=== PATIENT | female | born 1970 | race Caucasian/White ===

== ENCOUNTER 2021-04-20 10:54 | Emergency (ER) | payer MEDICAID ==
[~2021-04-20] VITALS: Ht 149.9 cm; Wt 11.4 kg
[2021-04-20 10:57] VITALS: BP 122/84
[2021-04-20] MEDS ORDERED: dexamethasone sod phosphate 10mg/ml inj PO STA (12:09)
[2021-04-20] MEDS ORDERED: LIDOcaine Viscous 15ml cup MM STA (12:09)
[2021-04-20] MEDS ORDERED: ketorolac trometh inj. 60 MG/2 ML VIAL IM ONE (12:10)
[2021-04-20] MEDS ORDERED: CefTRIAXone 1000mg IM Kit (w/lidocaine diluent) IM ONE (14:00)
[2021-04-20] MEDS ORDERED: LIDO20SO16 PO (14:04)
[2021-04-20] MEDS ORDERED: CEPH250T PO (14:04)
[2021-04-20] MEDS ORDERED: METH4TAB3 PO (14:04)
== END 2021-04-20 14:30 | disposition home or self-care (01) ==
LOC: ER 10:55
DX: J02.9 Acute pharyngitis, unspecified (principal); Z20.822 Contact with and (suspected) exposure to COVID-19; R59.0 Localized enlarged lymph nodes; E78.00 Pure hypercholesterolemia, unspecified; I10 Essential (primary) hypertension; E03.9 Hypothyroidism, unspecified; F17.200 Nicotine dependence, unspecified, uncomplicated; Z72.89 Other problems related to lifestyle; Z79.2 Long term (current) use of antibiotics; Z79.899 Other long term (current) drug therapy
CPT/HCPCS: 87635; 87880; 96372; 99284; C9803; J0696; J1100; J1885

== ENCOUNTER 2023-04-04 11:32 | Outpatient (CLI) | payer MEDICAID ==
[~2023-04-04 11:32] MED LIST: LIDO20SO16 PO; METH4TAB3 PO
[2023-04-04 12:57] LABS: BILIRUBIN,URINE NEGATIVE (Neg); COLOR,URINE YELLOW (Yellow); GLUCOSE, URINE NEGATIVE (Neg); KETONES,URINE NEGATIVE (Neg); LEUKOCYTE ESTERASE ,URINE NEGATIVE (Neg); NITRITES, URINE NEGATIVE (Neg); OCCULT BLOOD,URINE NEGATIVE (Neg); PH,URINE 7.5 (4.8-8.0); PROTEIN,URINE NEGATIVE (Neg); UROBILINOGEN,URINE 0.2 E.U/dL (0.2-1.0)
[2023-04-04 13:02] LABS: APTT 30 SECONDS (22-32); PROTHROMBIN TIME 9.7 SECONDS (9.0-12.0)
[2023-04-04 13:03] LABS: BASOPHILS % (AUTO) 0.3 % (0-1); EOSINOPHILS # (AUTO) 0.1 X10'3 (0-0.9); EOSINOPHILS % (AUTO) 1.8 % (0-6); HEMATOCRIT 38.7 % (35.0-45.0); HEMOGLOBIN 12.6 g/dl (12.0-16.0); LYMPHOCYTES # (AUTO) 2.3 X10'3 (1.1-4.8); LYMPHOCYTES % (AUTO) 32.1 % (21-51); MEAN CORPUSCULAR HEMOGLOBIN 29.2 PG (27.0-31.0); MEAN CORPUSCULAR HGB CONC 32.6 g/dL (33.0-36.5); MEAN CORPUSCULAR VOLUME 89.6 FL (78-98); MEAN PLATELET VOLUME 7.1 FL (7.4-10.4); MONOCYTES # (AUTO) 0.5 X10'3 (0-0.9); MONOCYTES % (AUTO) 6.8 % (2-12); NEUTROPHILS # (AUTO) 4.2 X10'3 (1.8-7.7); PLATELET COUNT 407 X10'3 (140-440); RED BLOOD COUNT 4.32 X10'6 (4.20-5.60); RED CELL DISTRIBUTION WIDTH 13.9 % (11.5-14.5); UA COLLECTION TYPE CLN CATCH MIDSTREAM; WHITE BLOOD COUNT 7.1 X10'3 (4.5-11.0)
[2023-04-04 13:04] LABS: BACTERIA,URINE FEW /HPF (Neg); CLARITY,URINE SLIGHTLY CLOUDY (Clear); RBC,URINE NONE SEEN /HPF (0-2); SQUAMOUS EPITHELIAL CELL,UR MODERATE /LPF (FEW)
[2023-04-04 13:05] LABS: ALANINE AMINOTRANSFERASE 31 U/L (12-78); ALBUMIN 2.9 G/DL (3.4-5.0); ALBUMIN/GLOBULIN RATIO 0.7 (1.1-1.5); ALKALINE PHOSPHATASE 106 IU/L (46-116); ANION GAP 7 (8-16); ASPARTATE AMINO TRANSFERASE 12 U/L (10-37); BILIRUBIN,TOTAL 0.2 MG/DL (0.1-1.0); BLOOD UREA NITROGEN 12 MG/DL (7-18); BUN/CREATININE RATIO 16.7 (10.0-20.0); CHLORIDE 102 MMOL/L (99-107); CREATININE 0.72 MG/DL (0.40-0.90); GLUCOSE 95 MG/DL (70-104); MUCUS STRANDS MODERATE /LPF (Neg); POTASSIUM 4.3 MMOL/L (3.5-5.1); SODIUM 138 MMOL/L (135-145); TOTAL CARBON DIOXIDE 28.9 MMOL/L (24-32); TOTAL PROTEIN 7.3 G/DL (6.4-8.2); eGFR 84 ML/MIN
[2023-04-04 13:28] LABS: INR 0.9 INR
== END 2023-04-04 23:59 | disposition home or self-care (01) ==
LOC: LAB 11:32
PROVIDERS: ATTEND Surgery
DX: C34.92 Malignant neoplasm of unspecified part of left bronchus or lung (principal)
CPT/HCPCS: 36415; 71046; 80053; 81001; 85025; 85610; 85730; 86900; 86901; 87088

== ENCOUNTER 2023-04-24 15:07 | Outpatient (CLI) | payer MEDICAID ==
[~2023-04-24 15:07] MED LIST changes: +ATOR10TA70 PO; +ENOX100S3 SQ; +LEVO150T8 PO; +LISI20TA28 PO; +MAGNESIUM; +MULT80TA PO; +VITAMIN B 12; +VITAMIN C; +VITAMIN D; +[UNRECOGNIZED DRUG - OTHER]; +[UNRECOGNIZED DRUG - OTHER]; +[UNRECOGNIZED DRUG - OTHER]
[2023-04-28] MEDS ORDERED: LEVO112T5 PO (13:35)
[2023-05-05] MEDS ORDERED: HYDR-3972 PO ×2 (08:57)
[2023-05-15] MEDS ORDERED: HYDR-3973 PO (10:53)
[2023-05-17] MEDS ORDERED: CARV3.12 PO (12:59)
[2023-05-17] MEDS ORDERED: SYN0.088T PO (13:02)
[2023-05-30] MEDS ORDERED: HYDR-3973 PO (20:35)
[2023-07-04] MEDS ORDERED: HYDR-3973 PO ×2 (10:00)
[2023-07-12] MEDS ORDERED: HYDR-3965 PO (11:27)
== END 2023-04-24 23:59 | disposition home or self-care (01) ==
LOC: LAB 15:07
PROVIDERS: ATTEND Internal Medicine Medical Oncology
DX: R91.8 Other nonspecific abnormal finding of lung field (principal)
CPT/HCPCS: 36415; 83891

== ENCOUNTER 2023-05-01 06:12 | Inpatient (IN) | payer MEDICAID ==
[2023-04-24 16:45] LABS: BILIRUBIN,URINE NEGATIVE (Neg); CLARITY,URINE CLEAR (Clear); COLOR,URINE YELLOW (Yellow); GLUCOSE, URINE NEGATIVE (Neg); KETONES,URINE NEGATIVE (Neg); LEUKOCYTE ESTERASE ,URINE NEGATIVE (Neg); NITRITES, URINE NEGATIVE (Neg); OCCULT BLOOD,URINE NEGATIVE (Neg); PROTEIN,URINE NEGATIVE (Neg); UROBILINOGEN,URINE 0.2 E.U/dL (0.2-1.0)
[2023-04-24 16:46] LABS: BASOPHILS % (AUTO) 0.6 % (0-1); EOSINOPHILS # (AUTO) 0.1 X10'3 (0-0.9); EOSINOPHILS % (AUTO) 1.3 % (0-6); LYMPHOCYTES # (AUTO) 2.6 X10'3 (1.1-4.8); LYMPHOCYTES % (AUTO) 31.7 % (21-51); MEAN CORPUSCULAR HEMOGLOBIN 29.2 PG (27.0-31.0); MEAN CORPUSCULAR VOLUME 88.3 FL (78-98); MEAN PLATELET VOLUME 7.4 FL (7.4-10.4); MONOCYTES # (AUTO) 0.5 X10'3 (0-0.9); MONOCYTES % (AUTO) 6.6 % (2-12); NEUTROPHILS # (AUTO) 4.9 X10'3 (1.8-7.7); NEUTROPHILS % (AUTO) 59.8 % (42-75); PRE OP HEMATOCRIT 39.3 % (35.0-45.0); PRE OP PLATELET COUNT 483 X10'3 (140-440); PRE OP WHITE BLOOD COUNT 8.1 10'3 (4.8-10.8); RED BLOOD COUNT 4.45 X10'6 (4.20-5.60); RED CELL DISTRIBUTION WIDTH 13.7 % (11.5-14.5)
[2023-04-24 16:49] LABS: UA COLLECTION TYPE CLN CATCH MIDSTREAM
[2023-04-24 16:52] LABS: URINE HCG NEGATIVE (NEG)
[2023-04-24 16:57] LABS: PRE OP PROTIME 10.3 SECONDS (9.0-12.0)
[2023-04-24 17:02] LABS: HEMOGLOBIN A1C 6.2 % (4.5-6.2)
[2023-04-24 17:11] LABS: ALBUMIN/GLOBULIN RATIO 0.6 (1.1-1.5); ALKALINE PHOSPHATASE 109 IU/L (46-116); BLOOD UREA NITROGEN 14 MG/DL (7-18); BUN/CREATININE RATIO 20.3 (10.0-20.0); CALCIUM 9.8 MG/DL (8.5-10.1); CHLORIDE 99 MMOL/L (99-107); CREATININE 0.69 MG/DL (0.40-0.90); PRE OP ALT 38 U/L (30-65); PRE OP ANION GAP 10 (8-16); PRE OP AST 14 U/L (10-37); PRE OP BILIRUB, TOTAL 0.3 MG/DL (0.0-1.0); PRE OP GLUCOSE 96 MG/DL (70-104); PRE OP POTASSIUM 3.9 MMOL/L (3.4-5.1); PRE OP SODIUM 137 MMOL/L (135-145); TOTAL CARBON DIOXIDE 28.1 MMOL/L (24-32); TOTAL PROTEIN 7.7 G/DL (6.4-8.2); eGFR 89 ML/MIN
[2023-04-25 05:56] LABS: ABG BASE EXCESS -0.4 mmol/L (-2.0-2.0); ABG HCO3 23.7 mmol/L (22.0-26.0); ABG OXYGEN SATURATION 97.3 % (94-97); ABG PCO2 (T) 36.8 mmHg (32.0-45.0); ABG PH (T) 7.426 (7.350-7.450); ALLEN'S TEST POSITIVE; FCOHb 0.3 % (0.0-3.9); FHHb 2.7 % (0.0-5.0); FMetHb 0.2 % (0.0-1.5); FO2Hb 96.8 % (94-97); MODE ROOM AIR; TOTAL HEMOGLOBIN 13.3 G/dl (12.0-16.0)
[2023-05-01] VITALS (25 sets, daily range): BP systolic 101–155; BP diastolic 50–86; PULSE 72–110; RESP 12–27; TEMP 97.4; O2SAT 65–100
[~2023-05-01] VITALS: Ht 149.9 cm; Wt 63.1 kg
[2023-05-01] MEDS: metoprolol tartrate 12.5mg (1/2 tablet) PO ONE ×2 (05:30→07:24)
[~2023-05-01 06:12] MED LIST changes: +LEVO112T5 PO; -LEVO150T8 PO; -LIDO20SO16 PO; -METH4TAB3 PO; +cefazolin 2gm/D5W 100mL 100 ML IV ONE; +clindamycin-Cleocin 900mg/D5W 50 ML IV ONE; +famotidine 20mg tablet PO ONE; +mupirocin 2% nasal ointment 1gm UD NS ONE; +ringers solution, lacted 1,000 ML IV SCH
[2023-05-01] MEDS ORDERED: MIDAZolam 1 MG/ML 5ML VIAL ONE (07:47)
[2023-05-01] MEDS ORDERED: fentaNYL /PF 50mcg/ml 5ml ampule ONE ×2 (07:47→11:18)
[2023-05-01] MEDS ORDERED: LIDOcaine 2% (20mg/ml) 5ml vial ONE (07:48)
[2023-05-01] MEDS ORDERED: rocuronium 10mg/ml inj IV ONE ×2 (07:48)
[2023-05-01] MEDS ORDERED: propofol inj 20 ML IV ONE (07:48)
[2023-05-01] MEDS ORDERED: dexamethasone sod phosphate 4mg/ml inj. ONE (07:48)
[2023-05-01] MEDS ORDERED: ondansetron/PF 4mg/2ml inj ONE (07:48)
[2023-05-01] MEDS ORDERED: hydrALAZINE 20mg/ml inj. IV PRN (07:55)
[2023-05-01] MEDS ORDERED: ringers solution, lacted 1,000 ML IV SCH (07:55)
[2023-05-01] MEDS ORDERED: morphine 2 MG/ML inj. syringe IV PRN (07:55)
[2023-05-01] MEDS ORDERED: ondansetron/PF 4mg/2ml inj IV PRN ×2 (07:55→13:20)
[2023-05-01] MEDS ORDERED: fentaNYL/PF 50MCG/1 ML 2ML syringe IV PRN ×2 (07:55)
[2023-05-01] MEDS ORDERED: labetalol 20mg/4ml (5mg/ml) syringe IV PRN (07:55)
[2023-05-01] MEDS ORDERED: sevoflurane 250ml liquid IH ONE (08:05)
[2023-05-01] MEDS ORDERED: NORepinephrine 8 MG in NS 250 ML BAG (32 mcg/ml) IV ONE (08:05)
[2023-05-01] MEDS ORDERED: LIDOcaine 4% LTA kit 4ml solution TP ONE (08:25)
[2023-05-01] MEDS ORDERED: BUPIVAcaine/PF 2.5 mg/ml (0.25%) 30ml vial ONE ×2 (09:25→09:52)
[2023-05-01] MEDS ORDERED: albumin (Human) 5% 250ml 250 ML IV ONE ×3 (10:05→11:18)
[2023-05-01] MEDS ORDERED: sugammadex 200mg/2ml injection IV ONE (12:03)
[2023-05-01] MEDS ORDERED: BUPIVAcaine/PF 2.5mg/ml (0.25%) 10ml vial ONE (12:40)
[2023-05-01] MEDS ORDERED: fentaNYL/PF 50MCG/1 ML 2ML syringe ONE (12:53)
--- NOTE | 2023-05-01 13:18 | NUR ---
Received from OR via BED IN STABLE CONDITION , accompanied by Anesthesiologist, and HOUSEHOLD CHORES report given by HOUSEHOLD CHORES AND Anesthesiolgist. Addendum: 05/01/23 at 1419 by Rosanne Mabry RN Amended: Links added.
[2023-05-01] MEDS ORDERED: albuterol 2.5 MG/3 ML nebule NEB PRN (13:20)
[2023-05-01] MEDS ORDERED: metoclopramide 5 mg/ml inj IV PRN (13:20)
[2023-05-01 13:41] LABS: ABG BASE EXCESS -4.3 mmol/L (-2.0-2.0); ABG HCO3 21.4 mmol/L (22.0-26.0); ABG OXYGEN SATURATION 99.3 % (94-97); ABG PCO2 (T) 40.7 mmHg (32.0-45.0); ABG PH (T) 7.335 (7.350-7.450); ABG PO2 (T) 229.1 mmHg (75.0-100.0); FCOHb 0.3 % (0.0-3.9); FHHb 0.7 % (0.0-5.0); FLOW 8 L/min; FMetHb 0.3 % (0.0-1.5); FO2Hb 98.7 % (94-97); MODE MASK - SIMPLE; PATIENT TEMPERATURE 36.3
[2023-05-01] MEDS: ketorolac tromethamine 15mg/ml inj. IV SCH ×2 (14:35→20:19)
[2023-05-01] MEDS: morphine 4 MG/ML inj SYRINge IV PRN ×2 (14:35→14:52)
[2023-05-01] MEDS ORDERED: acetaminophen 1,000mg/100ml IV 100 ML IV STA (14:41)
--- NOTE | 2023-05-01 15:18 | NUR ---
PATIENT DISCHARGED FROM PACU IN STABLE CONDITION AFTER REPORT GIVEN TO RN TAKING OVER PATIENTS CARE. PATIENT TRANSFERRED TO ROOM 2045 VIA BED WITH RNX2. Addendum: 05/01/23 at 1543 by Rosanne Mabry RN Amended: Links added.
--- NOTE | 2023-05-01 15:57 | NUR ---
Patient in room ICU 2045. I have received report from Bri RN and had the opportunity to ask questions and assume patient care. Patient assessment, lines and drips addressed bedside.
[2023-05-01] MEDS ORDERED: ROPIVACAINE MEDSTERN SCH ×2 (16:35)
--- NOTE | 2023-05-01 16:38 | NUR ---
Dr. Velazquez by to round on patient, would like provivacaine balls hooked up as soon as pharmacy brings them, stated patient has a history of HTN and to call for orders if her SBP is greater than 160, Stated that it is likely that she i will go into AFib with the pheumonectomy if she does call for orders, would like for PT to see her tomorrow
[2023-05-01] MEDS: ROPIVAcaine 0.2%/PF PUMP 545 ML MEDSTERN SCH (16:42)
[2023-05-01] MEDS ORDERED: ROPIVAcaine 0.2%/PF PUMP 545 ML MEDSTERN SCH (16:43)
[2023-05-01] MEDS: ceFAZolin inj. 1,000 MG in dextrose 5%-water 50ml 50 ML IV SCH (16:56)
[2023-05-01] MEDS: morphine 2 MG/ML inj. syringe IV PRN (17:49)
[2023-05-01] MEDS: gabapentin 300mg capsule PO SCH (20:19)
[2023-05-01] MEDS ORDERED: lisinopril 10 MG tablet PO SCH (21:00)
[2023-05-02] VITALS (27 sets, daily range): BP systolic 81–135; BP diastolic 48–81; PULSE 83–111; RESP 13–34; TEMP 100.4–101.2; O2SAT 93–100
[2023-05-02] MEDS: ceFAZolin inj. 1,000 MG in dextrose 5%-water 50ml 50 ML IV SCH ×2
[2023-05-02] MEDS: morphine 2 MG/ML inj. syringe IV PRN ×3 (00:31→23:25)
[2023-05-02 02:45] LABS: BASOPHILS % (AUTO) 0.3 % (0-1); EOSINOPHILS % (AUTO) 0 % (0-6); HEMATOCRIT 27.4 % (35.0-45.0); HEMOGLOBIN 9.1 g/dl (12.0-16.0); LYMPHOCYTES # (AUTO) 1.1 X10'3 (1.1-4.8); LYMPHOCYTES % (AUTO) 11.6 % (21-51); MEAN CORPUSCULAR HEMOGLOBIN 29.1 PG (27.0-31.0); MEAN CORPUSCULAR HGB CONC 33.1 g/dL (33.0-36.5); MEAN PLATELET VOLUME 6.9 FL (7.4-10.4); MONOCYTES # (AUTO) 0.9 X10'3 (0-0.9); MONOCYTES % (AUTO) 9.5 % (2-12); NEUTROPHILS # (AUTO) 7.3 X10'3 (1.8-7.7); NEUTROPHILS % (AUTO) 78.6 % (42-75); PLATELET COUNT 367 X10'3 (140-440); RED BLOOD COUNT 3.11 X10'6 (4.20-5.60); RED CELL DISTRIBUTION WIDTH 13.7 % (11.5-14.5); WHITE BLOOD COUNT 9.2 X10'3 (4.5-11.0)
[2023-05-02 02:59] LABS: ALANINE AMINOTRANSFERASE 32 U/L (12-78); ALBUMIN 2.8 G/DL (3.4-5.0); ALBUMIN/GLOBULIN RATIO 0.8 (1.1-1.5); ALKALINE PHOSPHATASE 60 IU/L (46-116); ANION GAP 8 (8-16); ASPARTATE AMINO TRANSFERASE 20 U/L (10-37); BILIRUBIN,TOTAL 0.5 MG/DL (0.1-1.0); BLOOD UREA NITROGEN 14 MG/DL (7-18); BUN/CREATININE RATIO 20.9 (10.0-20.0); CALCIUM 8.4 MG/DL (8.5-10.1); CHLORIDE 104 MMOL/L (99-107); CREATININE 0.67 MG/DL (0.40-0.90); GLUCOSE 145 MG/DL (70-104); MAGNESIUM 1.6 MG/DL (1.5-2.4); PHOSPHORUS 4.2 MG/DL (2.3-4.5); POTASSIUM 4.2 MMOL/L (3.5-5.1); SODIUM 137 MMOL/L (135-145); TOTAL CARBON DIOXIDE 25.5 MMOL/L (24-32); TOTAL PROTEIN 6.1 G/DL (6.4-8.2); eCRCL 65 ML/MIN; eGFR > 90 ML/MIN
[2023-05-02] MEDS: ketorolac tromethamine 15mg/ml inj. IV SCH ×2 (05:15→07:46)
[2023-05-02] MEDS: gabapentin 300mg capsule PO SCH ×2 (07:46→20:11)
[2023-05-02] MEDS ORDERED: levoTHYROXINE 112mcg tablet PO SCH (08:00)
[2023-05-02] MEDS ORDERED: lisinopril 5mg tablet PO SCH (08:15)
[2023-05-02] MEDS ORDERED: magnesium 2GM in 50ml NS 50 ML IV ONE (08:25)
[2023-05-02] MEDS ORDERED: metoclopramide 5 mg/ml inj IV ONE (09:10)
[2023-05-02] MEDS: enoxaparin 30mg/0.3ml syringe SUBCUT SCH (09:31)
[2023-05-02] MEDS: HYDROcodone/acetaminophen 10/325mg tab PO PRN ×3 (11:59→21:10)
[2023-05-02] MEDS: ringers solution, lacted 1,000 ML IV SCH ×2 (12:35→14:04)
--- NOTE | 2023-05-02 12:39 | NUR ---
Nutrition consult: Pt is s/p thoracotomy and left pneumonectomy per EMR. Pt is currently on clear liquid diet. Noted pt seen by WATER SOFTENER SERVICER this morning whom recommends a regular diet due to swallowing well and no aspiration noted. RN to discuss recommendations with surgeon for diet advancement per T/C discussion with RN. RD attempted to provide high protein education however pt busy with RN during visit. Will reattempt to provide education at a later time. Addendum: 05/02/23 at [address] Amended: Links added.
[2023-05-02] MEDS ORDERED: acetaminophen 325mg tablet PO PRN (13:50)
[2023-05-02] MEDS ORDERED: PHENYLephrine 10mg/ml inj. 100 MG in normal saline 250ml IV soln 240 ML IV SCH (15:25)
[2023-05-02 16:16] LABS: HEMATOCRIT 26.8 % (35.0-45.0); HEMOGLOBIN 8.8 g/dl (12.0-16.0); MEAN CORPUSCULAR HEMOGLOBIN 29.2 PG (27.0-31.0); MEAN CORPUSCULAR VOLUME 88.4 FL (78-98); PLATELET COUNT 399 X10'3 (140-440); RED BLOOD COUNT 3.03 X10'6 (4.20-5.60); WHITE BLOOD COUNT 9.7 X10'3 (4.5-11.0)
--- NOTE | 2023-05-02 16:19 | NUR ---
Patient in room ICU 2045. I have received report from Perico THRASHER and had the opportunity to ask questions and assume patient care.
--- NOTE | 2023-05-02 16:20 | NUR ---
Dr Velazquez notified of patients Tmax of 38.5 and hypotension of 68/34 new orders Hold lisinopril start neosynephrine to systolic blood pressure of 90 Draw blood cultures x2, one to be drawn from the central line H/H stat transfuse 1 unit if hct less than 25 send for urine culture
[2023-05-02] MEDS: CefTRIAXone/D5W-Rocephin 1gm 50 ML IV SCH (16:23)
--- NOTE | 2023-05-02 18:04 | NUR ---
Patients got patient up to side of bed without calling for help or asking for permission or assistance, per Dr. Velazquez wants patient on bed rest until the hypotension is resolved. In the process of patients getting her to the side of the bed the white cap provivacane catheter was pulled out. Dr. Velazquez made aware
[2023-05-02] MEDS ORDERED: furosemide 20 MG/2 ML vial IV PRN (18:10)
--- NOTE | 2023-05-02 18:30 | NUR ---
Patient in room ICU 2045. I have received report from Karishma THRASHER and had the opportunity to ask questions and assume patient care.
[2023-05-02 23:41] LABS: BILIRUBIN,URINE NEGATIVE (Neg); COLOR,URINE YELLOW (Yellow); GLUCOSE, URINE NEGATIVE (Neg); KETONES,URINE NEGATIVE (Neg); LEUKOCYTE ESTERASE ,URINE NEGATIVE (Neg); NITRITES, URINE NEGATIVE (Neg); OCCULT BLOOD,URINE SMALL (Neg); PROTEIN,URINE NEGATIVE (Neg); UROBILINOGEN,URINE 0.2 E.U/dL (0.2-1.0)
[2023-05-02 23:52] LABS: UA COLLECTION TYPE FOLEY CATH
[2023-05-02 23:53] LABS: CLARITY,URINE SLIGHTLY CLOUDY (Clear)
[2023-05-02 23:54] LABS: BACTERIA,URINE FEW /HPF (Neg); MUCUS STRANDS FEW /LPF (Neg); SQUAMOUS EPITHELIAL CELL,UR FEW /LPF (FEW); TRANSITIONAL EPI CELLS,URINE FEW /HPF; WBC,URINE 0-4 /HPF (0-4)
[2023-05-03] VITALS (26 sets, daily range): BP systolic 89–131; BP diastolic 50–86; PULSE 87–120; RESP 16–26; O2SAT 90–98
[2023-05-03] MEDS: HYDROcodone/acetaminophen 10/325mg tab PO PRN ×5 (02:12→21:46)
[2023-05-03] MEDS: morphine 2 MG/ML inj. syringe IV PRN ×2 (03:52→03:58)
[2023-05-03 06:21] LABS: BASOPHILS % (AUTO) 0.3 % (0-1); EOSINOPHILS # (AUTO) 0.1 X10'3 (0-0.9); EOSINOPHILS % (AUTO) 0.6 % (0-6); HEMOGLOBIN 10.2 g/dl (12.0-16.0); LYMPHOCYTES # (AUTO) 1.7 X10'3 (1.1-4.8); LYMPHOCYTES % (AUTO) 14.2 % (21-51); MEAN CORPUSCULAR HEMOGLOBIN 29.5 PG (27.0-31.0); MEAN CORPUSCULAR HGB CONC 32.9 g/dL (33.0-36.5); MEAN CORPUSCULAR VOLUME 89.5 FL (78-98); MEAN PLATELET VOLUME 7.2 FL (7.4-10.4); MONOCYTES # (AUTO) 1.3 X10'3 (0-0.9); MONOCYTES % (AUTO) 10.9 % (2-12); NEUTROPHILS # (AUTO) 8.9 X10'3 (1.8-7.7); PLATELET COUNT 407 X10'3 (140-440); RED BLOOD COUNT 3.46 X10'6 (4.20-5.60); RED CELL DISTRIBUTION WIDTH 13.9 % (11.5-14.5); WHITE BLOOD COUNT 12.1 X10'3 (4.5-11.0)
--- NOTE | 2023-05-03 06:29 | NUR ---
Problems reprioritized. Patient report given, questions answered & plan of care reviewed with Karishma THRASHER.
[2023-05-03 06:39] LABS: ALBUMIN 2.6 G/DL (3.4-5.0); ANION GAP 6 (8-16); BLOOD UREA NITROGEN 16 MG/DL (7-18); BUN/CREATININE RATIO 21.9 (10.0-20.0); CALCIUM 8.7 MG/DL (8.5-10.1); CHLORIDE 102 MMOL/L (99-107); CREATININE 0.73 MG/DL (0.40-0.90); GLUCOSE 147 MG/DL (70-104); POTASSIUM 4.3 MMOL/L (3.5-5.1); SODIUM 137 MMOL/L (135-145); TOTAL CARBON DIOXIDE 29.4 MMOL/L (24-32); eCRCL 60 ML/MIN; eGFR 83 ML/MIN
--- NOTE | 2023-05-03 06:51 | NUR ---
Patient in room ICU 2045. I have received report from Kierra THRASHER and had the opportunity to ask questions and assume patient care.
[2023-05-03] MEDS: levoTHYROXINE 112mcg tablet PO SCH (07:46)
[2023-05-03] MEDS: enoxaparin 30mg/0.3ml syringe SUBCUT SCH (08:00)
[2023-05-03] MEDS: lactose-reduced food (Ensure Enlive) - 237ml bottle PO SCH ×2 (08:00→18:00)
[2023-05-03] MEDS: CefTRIAXone/D5W-Rocephin 1gm 50 ML IV SCH ×2 (08:59→19:38)
[2023-05-03] MEDS: gabapentin 300mg capsule PO SCH (08:59)
[2023-05-03] MEDS ORDERED: lactulose 20gm/30ml cup PO ONE (09:05)
--- NOTE | 2023-05-03 09:08 | NUR ---
Dr. Velazquez by to round on patient, labs, systems, and assessment reviewed new orders increase provivicane ball to 4mls/hr 30mg lactulose BID/PRN constipation lactobacillus daily multivitamin daily zinc daily
[2023-05-03] MEDS: multivitamins, therapeutics tablet PO SCH (10:45)
[2023-05-03] MEDS: pantoprazole 40mg Tablet.DR PO SCH (10:45)
[2023-05-03] MEDS: morphine 4 MG/ML inj SYRINge IV PRN ×3 (10:45→19:35)
[2023-05-03 10:47] LABS: THYROID STIMULATING HORMONE 0.07 ulU/ml (0.34-4.50)
--- NOTE | 2023-05-03 11:19 | NUR ---
F/u for nutrition consult: Pt seen at bedside provided with written and verbal high protein nutrition therapy education. Noted pt on a regular diet though requesting clear liquids d/t GI symptoms per ST note and verbal d/w RN. During RD visit pt endorses a good appetite though states she is having gas which is why she doesn't want to eat much. RD encouraged PO intake and obtained food preferences that were d/w dietary, see below. Pt inquired about SO bringing food in, RD encouraged outside food to optimize PO intake though requested pt inform RN prior to receiving outside food from SO. Pt verbalized understanding. Pt agrees to Ensure to optimize PO intake, to be sent pending physician approval in EMR. Pt denies any food allergies. No documented BM since admit. 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 Routine bowel care added to med list today and pt receiving PRN Reglan. Pt provided with ONS coupons and RD contact information and encouraged to reach out if needed. Information obtained from pt was d/w bedside RN. Will continue to follow closely. Recommendations: 1) Continue regular diet 2) Chocolate/vanilla Ensure Enlive TID, pending physician approval in EMR 3) [place] food preferences: Smoothie WB, [place] [employer] Ice WL, milkshake WS; allow outside food to optimize PO intake 4) Routine and PRN bowel care 5) Weekly scaled weights Addendum: 05/03/23 at [address] Amended: Links added.
[2023-05-03] MEDS ORDERED: NUT.TX.IMPAIRED DIGEST FXN (Ensure Clear) 237 ML PO SCH (13:00)
--- NOTE | 2023-05-03 14:39 | NUR ---
Dr. Chaparro by to round on patient, systems, labs and assessment reviewed new orders D/C central line NS at 80 mls/hr Clear liquid diet transfer any floor with tele Addendum: 05/03/23 at 1444 by Debbie Garza RN note on wrong patient
[2023-05-03] MEDS: ROPIVAcaine 0.2%/PF PUMP 545 ML MEDSTERN SCH (16:42)
--- NOTE | 2023-05-03 18:30 | NUR ---
Patient in room ICU 2045. I have received report from Karishma THRASHER and had the opportunity to ask questions and assume patient care.
[2023-05-03] MEDS: sennosides/docusate sodium tablet PO SCH (19:37)
[2023-05-03] MEDS: docusate sod 100mg capsule PO SCH (19:37)
[2023-05-03] MEDS: zinc sulfate 220mg capsule PO SCH (19:37)
[2023-05-03] MEDS ORDERED: zinc sulfate 220mg capsule PO SCH (20:00)
[2023-05-04] VITALS (27 sets, daily range): BP systolic 96–136; BP diastolic 60–85; PULSE 85–110; RESP 11–27; O2SAT 92–100
[2023-05-04] MEDS: HYDROcodone/acetaminophen 10/325mg tab PO PRN ×5 (02:36→21:18)
[2023-05-04] MEDS: morphine 4 MG/ML inj SYRINge IV PRN ×2 (05:22→19:25)
[2023-05-04 06:09] LABS: ALBUMIN 2.3 G/DL (3.4-5.0); ANION GAP 4 (8-16); BLOOD UREA NITROGEN 17 MG/DL (7-18); BUN/CREATININE RATIO 26.2 (10.0-20.0); CHLORIDE 100 MMOL/L (99-107); CREATININE 0.65 MG/DL (0.40-0.90); GLUCOSE 152 MG/DL (70-104); POTASSIUM 4.2 MMOL/L (3.5-5.1); SODIUM 134 MMOL/L (135-145); TOTAL CARBON DIOXIDE 30.5 MMOL/L (24-32); eCRCL 67 ML/MIN; eGFR > 90 ML/MIN
--- NOTE | 2023-05-04 06:20 | NUR ---
Problems reprioritized. Patient report given, questions answered & plan of care reviewed with Karishma THRASHER.
--- NOTE | 2023-05-04 07:11 | NUR ---
Patient in room ICU 2045. I have received report from PRICE Lozada and had the opportunity to ask questions and assume patient care.
--- NOTE | 2023-05-04 07:11 | NUR ---
Dr Velazquez in to see patient. New orders to transfer patient upstairs with tele and continuous sat monitoring. labs for am, hold antihypertensives, keep on O2, up to chair for meals, leave central line in for 1 more day.
[2023-05-04] MEDS: levoTHYROXINE 112mcg tablet PO SCH (07:25)
[2023-05-04] MEDS: pantoprazole 40mg Tablet.DR PO SCH (07:25)
[2023-05-04] MEDS: lactulose 20gm/30ml cup PO PRN (08:19)
[2023-05-04] MEDS: sennosides/docusate sodium tablet PO SCH ×2 (08:19→19:24)
[2023-05-04] MEDS: lactobacillus rhamnosus 10,000 MMU CELLS/CAPSULE PO SCH (08:19)
[2023-05-04] MEDS: CefTRIAXone/D5W-Rocephin 1gm 50 ML IV SCH ×2 (08:19→19:24)
[2023-05-04] MEDS: multivitamins, therapeutics tablet PO SCH (08:19)
[2023-05-04] MEDS: docusate sod 100mg capsule PO SCH ×2 (08:19→19:24)
[2023-05-04] MEDS: enoxaparin 30mg/0.3ml syringe SUBCUT SCH (08:20)
[2023-05-04] MEDS ORDERED: potassium Cl 40MEQ/1/2NS 520ml 520 ML IV PRN (09:00)
[2023-05-04] MEDS ORDERED: potassium CL 10mEq/100ml bag 100 ML IV PRN (09:00)
[2023-05-04] MEDS ORDERED: potassium Cl 20 mEq SR tablet PO PRN ×2 (09:00)
[2023-05-04] MEDS ORDERED: potassium Cl 40MEQ/270ML bag 250 ML IV PRN (09:00)
[2023-05-04] MEDS ORDERED: magnesium 4gm in 100ml NS 100 ML IV PRN (09:00)
[2023-05-04] MEDS ORDERED: potassium Cl 20mEq/100mL bag 100 ML IV PRN (09:00)
[2023-05-04] MEDS ORDERED: magnesium 2GM in 50ml NS 50 ML IV PRN (09:00)
--- NOTE | 2023-05-04 10:41 | NUR ---
Nutrition consult: Pt already seen at bedside for written and verbal nutrition therapy education, please see prior RD note. Addendum: 05/04/23 at [address] Amended: Links added.
[2023-05-04] MEDS: zinc sulfate 220mg capsule PO SCH (12:02)
[2023-05-04] MEDS: lactose-reduced food (Ensure Enlive) - 237ml bottle PO SCH ×2 (13:10→18:00)
--- NOTE | 2023-05-04 14:04 | NUR ---
Pain complaint Pt complained of pain. Repositioned x 2 RN's, extremities elevated on pillows to comfort. Pt c/o gastric gas pain at this point. MAR indicates next pain med due at 1600. Discussed with pt and she is Okay for now. Family at bedside w/pt.
--- NOTE | 2023-05-04 18:30 | NUR ---
Patient in room ICU 2045. I have received report from Karishma THRASHER and had the opportunity to ask questions and assume patient care.
[2023-05-04] MEDS: magnesium Cl slow-release 64mg tablet PO SCH (19:24)
[2023-05-05] VITALS (25 sets, daily range): BP systolic 98–152; BP diastolic 52–90; PULSE 83–118; RESP 11–24; O2SAT 90–98
[2023-05-05] MEDS: morphine 4 MG/ML inj SYRINge IV PRN ×3 (00:32→14:04)
[2023-05-05] MEDS: HYDROcodone/acetaminophen 10/325mg tab PO PRN ×4 (04:04→21:38)
--- NOTE | 2023-05-05 06:21 | NUR ---
Problems reprioritized. Patient report given, questions answered & plan of care reviewed with Cassandra THRASHER.
[2023-05-05] MEDS: pantoprazole 40mg Tablet.DR PO SCH (06:41)
[2023-05-05] MEDS: levoTHYROXINE 112mcg tablet PO SCH (06:42)
[2023-05-05 06:43] LABS: BASOPHILS % (AUTO) 0.2 % (0-1); EOSINOPHILS # (AUTO) 0.3 X10'3 (0-0.9); EOSINOPHILS % (AUTO) 2.6 % (0-6); HEMOGLOBIN 9.1 g/dl (12.0-16.0); LYMPHOCYTES # (AUTO) 1.1 X10'3 (1.1-4.8); LYMPHOCYTES % (AUTO) 10.3 % (21-51); MEAN CORPUSCULAR HEMOGLOBIN 29.9 PG (27.0-31.0); MEAN CORPUSCULAR HGB CONC 33.8 g/dL (33.0-36.5); MEAN CORPUSCULAR VOLUME 88.4 FL (78-98); MONOCYTES % (AUTO) 9.2 % (2-12); NEUTROPHILS # (AUTO) 8.1 X10'3 (1.8-7.7); NEUTROPHILS % (AUTO) 77.7 % (42-75); PLATELET COUNT 403 X10'3 (140-440); RED BLOOD COUNT 3.05 X10'6 (4.20-5.60); RED CELL DISTRIBUTION WIDTH 14.2 % (11.5-14.5); WHITE BLOOD COUNT 10.5 X10'3 (4.5-11.0)
[2023-05-05 06:59] LABS: ALBUMIN 2.2 G/DL (3.4-5.0); ANION GAP 5 (8-16); BLOOD UREA NITROGEN 14 MG/DL (7-18); BUN/CREATININE RATIO 23.3 (10.0-20.0); CALCIUM 9.4 MG/DL (8.5-10.1); CHLORIDE 101 MMOL/L (99-107); GLUCOSE 137 MG/DL (70-104); POTASSIUM 4.2 MMOL/L (3.5-5.1); SODIUM 136 MMOL/L (135-145); TOTAL CARBON DIOXIDE 30.3 MMOL/L (24-32); eCRCL 73 ML/MIN; eGFR > 90 ML/MIN
[2023-05-05] MEDS: multivitamins, therapeutics tablet PO SCH (07:57)
[2023-05-05] MEDS: docusate sod 100mg capsule PO SCH ×2 (07:57→19:25)
[2023-05-05] MEDS: magnesium Cl slow-release 64mg tablet PO SCH ×2 (07:57→19:25)
[2023-05-05] MEDS: enoxaparin 30mg/0.3ml syringe SUBCUT SCH (07:58)
[2023-05-05] MEDS: sennosides/docusate sodium tablet PO SCH ×2 (07:58→19:25)
[2023-05-05] MEDS: lactobacillus rhamnosus 10,000 MMU CELLS/CAPSULE PO SCH (07:58)
[2023-05-05] MEDS: CefTRIAXone/D5W-Rocephin 1gm 50 ML IV SCH ×2 (07:59→19:25)
[2023-05-05] MEDS: lactose-reduced food (Ensure Enlive) - 237ml bottle PO SCH ×3 (08:03→17:50)
[2023-05-05] MEDS: zinc sulfate 220mg capsule PO SCH (08:10)
[2023-05-05] MEDS ORDERED: HYDR-3972 PO (08:57)
[2023-05-05] MEDS ORDERED: magnesium citrate 296ml oral solution PO ONE (09:00)
[2023-05-05] MEDS ORDERED: LEVO-65 PO (09:27)
[2023-05-05] MEDS: ROPIVAcaine 0.2%/PF PUMP 545 ML MEDSTERN SCH (16:42)
[2023-05-05] MEDS: lactulose 20gm/30ml cup PO PRN (19:28)
[2023-05-06] VITALS (16 sets, daily range): BP systolic 98–144; BP diastolic 66–90; PULSE 76–105; RESP 12–24; O2SAT 94–99
[2023-05-06 03:47] LABS: BASOPHILS % (AUTO) 0.5 % (0-1); EOSINOPHILS # (AUTO) 0.3 X10'3 (0-0.9); EOSINOPHILS % (AUTO) 3.5 % (0-6); HEMATOCRIT 26.4 % (35.0-45.0); LYMPHOCYTES # (AUTO) 1.6 X10'3 (1.1-4.8); LYMPHOCYTES % (AUTO) 21.5 % (21-51); MEAN CORPUSCULAR HEMOGLOBIN 30.2 PG (27.0-31.0); MEAN CORPUSCULAR HGB CONC 34.1 g/dL (33.0-36.5); MEAN CORPUSCULAR VOLUME 88.4 FL (78-98); MEAN PLATELET VOLUME 6.8 FL (7.4-10.4); MONOCYTES # (AUTO) 0.9 X10'3 (0-0.9); MONOCYTES % (AUTO) 12.9 % (2-12); NEUTROPHILS # (AUTO) 4.5 X10'3 (1.8-7.7); NEUTROPHILS % (AUTO) 61.6 % (42-75); PLATELET COUNT 382 X10'3 (140-440); RED BLOOD COUNT 2.99 X10'6 (4.20-5.60); WHITE BLOOD COUNT 7.3 X10'3 (4.5-11.0)
[2023-05-06 03:52] LABS: ALBUMIN 2.1 G/DL (3.4-5.0); ANION GAP 4 (8-16); BLOOD UREA NITROGEN 11 MG/DL (7-18); BUN/CREATININE RATIO 18.3 (10.0-20.0); CHLORIDE 103 MMOL/L (99-107); GLUCOSE 119 MG/DL (70-104); SODIUM 139 MMOL/L (135-145); TOTAL CARBON DIOXIDE 31.8 MMOL/L (24-32); eCRCL 73 ML/MIN; eGFR > 90 ML/MIN
[2023-05-06] MEDS: HYDROcodone/acetaminophen 10/325mg tab PO PRN ×4 (05:33→21:16)
--- NOTE | 2023-05-06 06:15 | NUR ---
Patient in room ICU 2045. I have received report from Stevan THRASHER and had the opportunity to ask questions and assume patient care.
[2023-05-06] MEDS: CefTRIAXone/D5W-Rocephin 1gm 50 ML IV SCH ×2 (07:07→20:26)
[2023-05-06] MEDS: multivitamins, therapeutics tablet PO SCH (07:08)
[2023-05-06] MEDS: levoTHYROXINE 112mcg tablet PO SCH (07:08)
[2023-05-06] MEDS: sennosides/docusate sodium tablet PO SCH ×2 (07:08→20:26)
[2023-05-06] MEDS: lactulose 20gm/30ml cup PO PRN (07:08)
[2023-05-06] MEDS: lactobacillus rhamnosus 10,000 MMU CELLS/CAPSULE PO SCH (07:08)
[2023-05-06] MEDS: magnesium Cl slow-release 64mg tablet PO SCH ×2 (07:08→20:26)
[2023-05-06] MEDS: docusate sod 100mg capsule PO SCH ×2 (07:08→20:26)
[2023-05-06] MEDS: pantoprazole 40mg Tablet.DR PO SCH (07:08)
[2023-05-06] MEDS: enoxaparin 30mg/0.3ml syringe SUBCUT SCH (07:09)
[2023-05-06] MEDS: zinc sulfate 220mg capsule PO SCH (07:09)
[2023-05-06] MEDS: lactose-reduced food (Ensure Enlive) - 237ml bottle PO SCH ×3 (08:41→16:27)
[2023-05-06] MEDS ORDERED: ondansetron/PF 4mg/2ml inj IV PRN (09:50)
[2023-05-06] MEDS ORDERED: bisacodyl 10mg suppository rectal RC PRN (09:50)
[2023-05-06] MEDS: folic acid 1mg tablet PO SCH (11:30)
--- NOTE | 2023-05-06 12:07 | NUR ---
Patient ambulated 300 feet with a FWW,denies dizziness,desat 86% after ambulation.Will notify CM.
--- NOTE | 2023-05-06 12:49 | NUR ---
Nutrition consult re: education on increasing fiber. Attempted visit with pt at bedside however pt unavailable. Likely that patient's lack of BM is r/t overall poor PO intake and lack of mobility. Pt has endorsed a good appetite though with lack of desire to eat secondary to stomach gas. Pt on a regular diet and overall eating poorly, documented with average 26% PO intake since admit. Pt receiving an Ensure Enlive TID though with only 50% PO intake of two ONS with refusal x 4 ONS. Per verbal d/w RN pt with a large BM today, which is patient's first BM since admit. Hopefully PO intake will improve following resolution of constipation. Noted pt receiving several routine bowel care medications and has also been provided with PRN bowel care. Pt has RD contact information and has been encouraged to reach out. Food preferences continue to be honored. Pt admit for non-small cell carcinoma of left lung. Currently POD #5 s/p left thoracotomy and pneumonectomy. Will continue to follow closely and make recommendations as appropriate. Recommendations: 1) Continue regular diet 2) Chocolate/vanilla Ensure Enlive TID 3) Encourage PO intake and honor food preferences: Smoothie WB, [place] Ice WL, milkshake WS; allow outside food to optimize PO intake 4) Routine and PRN bowel care 5) Weekly scaled weights Addendum: 05/06/23 at [address] Amended: Links added.
--- NOTE | 2023-05-06 14:22 | NUR ---
O2 Sat at rest on room air:98% If below 89%:Ambulated 300 feet with RN;oxygen saturation dropped to 86% RA after ambulation. Recovery O2 Sat at rest on 1-2LPM:99%:% via nasal cannula (mask/nasal cannula, etc..) No further documentation is necessary. If O2 Sat did not drop below 89% on room air,ambulate patient on room air. O2 Sat while ambulating on room air:___% Recovery O2 Sat while ambulating on ___LPM:___% No further documentation is necessary. If patient does not drop below 89% while ambulating, he/she does not qualify for home O2.
[2023-05-06] MEDS: psyllium seed 5.8 gm packet (sugar-free) PO SCH (14:29)
[2023-05-06] MEDS: metoclopramide 5 mg/ml inj IV SCH ×2 (14:30→20:27)
--- NOTE | 2023-05-06 18:00 | NUR ---
Got report from Nidia, all questions answered. Pt had a good day, walked x2 and bad BM x2. Supposed to go home tomorrow if home O2 can be set up.
--- NOTE | 2023-05-06 18:15 | NUR ---
Problems reprioritized. Patient report given, questions answered & plan of care reviewed with Stevan THRASHER.
[2023-05-07] VITALS: BP 93/62; PULSE 89; RESP 19; O2SAT 96
[2023-05-07 02:00] VITALS: BP 104/75; PULSE 79; RESP 17; O2SAT 95
[2023-05-07 02:22] LABS: BASOPHILS % (AUTO) 0.6 % (0-1); EOSINOPHILS # (AUTO) 0.2 X10'3 (0-0.9); EOSINOPHILS % (AUTO) 3.2 % (0-6); HEMATOCRIT 25.3 % (35.0-45.0); HEMOGLOBIN 8.5 g/dl (12.0-16.0); LYMPHOCYTES # (AUTO) 1.4 X10'3 (1.1-4.8); LYMPHOCYTES % (AUTO) 21.6 % (21-51); MEAN CORPUSCULAR HEMOGLOBIN 29.6 PG (27.0-31.0); MEAN CORPUSCULAR HGB CONC 33.6 g/dL (33.0-36.5); MEAN CORPUSCULAR VOLUME 87.9 FL (78-98); MEAN PLATELET VOLUME 6.5 FL (7.4-10.4); MONOCYTES # (AUTO) 0.8 X10'3 (0-0.9); MONOCYTES % (AUTO) 12.8 % (2-12); NEUTROPHILS # (AUTO) 4.1 X10'3 (1.8-7.7); NEUTROPHILS % (AUTO) 61.8 % (42-75); PLATELET COUNT 427 X10'3 (140-440); RED BLOOD COUNT 2.87 X10'6 (4.20-5.60); RED CELL DISTRIBUTION WIDTH 13.7 % (11.5-14.5); WHITE BLOOD COUNT 6.6 X10'3 (4.5-11.0)
[2023-05-07 02:25] LABS: ANION GAP 4 (8-16); BLOOD UREA NITROGEN 12 MG/DL (7-18); BUN/CREATININE RATIO 19.4 (10.0-20.0); CALCIUM 8.8 MG/DL (8.5-10.1); CHLORIDE 102 MMOL/L (99-107); CREATININE 0.62 MG/DL (0.40-0.90); GLUCOSE 120 MG/DL (70-104); SODIUM 138 MMOL/L (135-145); TOTAL CARBON DIOXIDE 31.9 MMOL/L (24-32); eCRCL 71 ML/MIN; eGFR > 90 ML/MIN
[2023-05-07] MEDS: HYDROcodone/acetaminophen 10/325mg tab PO PRN ×2 (03:53→09:20)
[2023-05-07 04:00] VITALS: BP 143/80; PULSE 89; RESP 19; O2SAT 96
[2023-05-07 06:03] VITALS: BP 119/60; PULSE 79; RESP 20; O2SAT 97
[2023-05-07] MEDS: psyllium seed 5.8 gm packet (sugar-free) PO SCH (07:51)
[2023-05-07] MEDS: enoxaparin 30mg/0.3ml syringe SUBCUT SCH (07:52)
[2023-05-07] MEDS: zinc sulfate 220mg capsule PO SCH (07:52)
[2023-05-07] MEDS: folic acid 1mg tablet PO SCH (07:53)
[2023-05-07] MEDS: sennosides/docusate sodium tablet PO SCH (07:53)
[2023-05-07] MEDS: metoclopramide 5 mg/ml inj IV SCH (07:53)
[2023-05-07] MEDS: pantoprazole 40mg Tablet.DR PO SCH (07:53)
[2023-05-07] MEDS: multivitamins, therapeutics tablet PO SCH (07:53)
[2023-05-07] MEDS: magnesium Cl slow-release 64mg tablet PO SCH (07:53)
[2023-05-07] MEDS: lactobacillus rhamnosus 10,000 MMU CELLS/CAPSULE PO SCH (07:53)
[2023-05-07] MEDS: levoTHYROXINE 112mcg tablet PO SCH (07:53)
[2023-05-07] MEDS: docusate sod 100mg capsule PO SCH (07:53)
[2023-05-07] MEDS: lactose-reduced food (Ensure Enlive) - 237ml bottle PO SCH (07:53)
[2023-05-07] MEDS: CefTRIAXone/D5W-Rocephin 1gm 50 ML IV SCH (07:55)
[2023-05-07 08:00] VITALS: BP 130/97; PULSE 95; RESP 19; RESP 20; O2SAT 93; O2SAT 94
[2023-05-07] MEDS ORDERED: ciprofloxacin 250mg tablet PO SCH (08:00)
--- NOTE | 2023-05-07 09:23 | NUR ---
O2 Sat at rest on room air:__88_% If below 89%: Recovery O2 Sat at rest on __1_LPM:___%:___% via nc (mask/nasal cannula, etc..) No further documentation is necessary. If O2 Sat did not drop below 89% on room air,ambulate patient on room air. O2 Sat while ambulating on room air:__86_% Recovery O2 Sat while ambulating on ___LPM:___% No further documentation is necessary. If patient does not drop below 89% while ambulating, he/she does not qualify for home O2.
[2023-05-07 09:37] VITALS: O2SAT 94
--- NOTE | 2023-05-07 12:17 | NUR ---
Pt discharge home with and son.
== END 2023-05-07 11:46 | disposition home health service (06) | DRG 121 ==
LOC: PAS IN 06:12 → ICU 2S 15:31
PROVIDERS: ADMIT Surgery; ATTEND Surgery
PROC: 07B70ZZ Excision of Thorax Lymphatic, Open Approach (ICD-10-PCS; 2023-05-01)
PROC: 0BBG0ZZ Excision of Left Upper Lung Lobe, Open Approach (ICD-10-PCS; 2023-05-01)
PROC: 0BJ08ZZ Inspection of Tracheobronchial Tree, Via Natural or Artificial Opening Endoscopic (ICD-10-PCS; 2023-05-01)
PROC: 3E0T3BZ Introduction of Anesthetic Agent into Peripheral Nerves and Plexi, Percutaneous Approach (ICD-10-PCS; 2023-05-01)
PROC: 0BJL4ZZ Inspection of Left Lung, Percutaneous Endoscopic Approach (ICD-10-PCS; 2023-05-01)
PROC: 03HY32Z Insertion of Monitoring Device into Upper Artery, Percutaneous Approach (ICD-10-PCS; principal; 2023-05-01 08:05)
PROC: 30233N1 Transfusion of Nonautologous Red Blood Cells into Peripheral Vein, Percutaneous Approach (ICD-10-PCS; 2023-05-02)
DX: C34.12 Malignant neoplasm of upper lobe, left bronchus or lung (principal); J43.1 Panlobular emphysema; I10 Essential (primary) hypertension; F17.200 Nicotine dependence, unspecified, uncomplicated; E78.5 Hyperlipidemia, unspecified; K59.00 Constipation, unspecified; I95.1 Orthostatic hypotension; E89.0 Postprocedural hypothyroidism; Z86.73 Personal history of transient ischemic attack (TIA), and cerebral infarction without residual deficits; Z92.3 Personal history of irradiation
CPT/HCPCS: 36415; 36430; 36600; 71045; 71046; 80048; 80053; 81001; 81003; 81025; 82803; 82948; 83036; 83605; 83735; 84100; 84443; 85018; 85025; 85027; 85610; 85730; 86885; 86900; 86901; 86920; 87040; 87070; 87075; 87081; 92508; 92616; 93005; 93308; 94760; 97116; 97161; 97530; A4215; A4615; A4618; A6212; A6213; A6258; A6449; A7000; G0378; J0131; J0690; J0696; J1100; J1650; J1885; J1940; J2250; J2270; J2370; J2405; J2704; J2765; J2795; J3010; J3475; J3490; J7030; J7040; J7050; J7060; J7120; P9016; P9045

== ENCOUNTER 2023-05-16 14:39 | Outpatient (CLI) | payer MEDICAID ==
[~2023-05-16 14:39] MED LIST changes: +HYDR-3972 PO; +HYDR-3973 PO; -LISI20TA28 PO; -cefazolin 2gm/D5W 100mL 100 ML IV ONE; -clindamycin-Cleocin 900mg/D5W 50 ML IV ONE; -famotidine 20mg tablet PO ONE; -mupirocin 2% nasal ointment 1gm UD NS ONE; -ringers solution, lacted 1,000 ML IV SCH
[2023-05-17] MEDS ORDERED: CARV3.12 PO (12:59)
[2023-05-17] MEDS ORDERED: SYN0.088T PO (13:02)
== END 2023-05-16 23:59 | disposition home or self-care (01) ==
LOC: RAD 14:39
PROVIDERS: ATTEND Thoracic Surgery (Cardiothoracic Vascular Surgery)
DX: J43.8 Other emphysema (principal); R91.8 Other nonspecific abnormal finding of lung field; J90 Pleural effusion, not elsewhere classified; Z90.2 Acquired absence of lung [part of]; Z98.890 Other specified postprocedural states
CPT/HCPCS: 71046

== ENCOUNTER 2023-05-31 15:16 | Outpatient (CLI) | payer MEDICAID ==
[~2023-05-31 15:16] MED LIST changes: +CARV3.12 PO; -HYDR-3972 PO; -LEVO112T5 PO; -MAGNESIUM; +SYN0.088T PO; -VITAMIN B 12; -VITAMIN C; -VITAMIN D; -[UNRECOGNIZED DRUG - OTHER]; -[UNRECOGNIZED DRUG - OTHER]; -[UNRECOGNIZED DRUG - OTHER]
== END 2023-05-31 23:59 | disposition home or self-care (01) ==
LOC: RAD 15:16
PROVIDERS: ATTEND Thoracic Surgery (Cardiothoracic Vascular Surgery)
DX: Z98.890 Other specified postprocedural states (principal); Z90.2 Acquired absence of lung [part of]
CPT/HCPCS: 71046

== ENCOUNTER 2023-06-27 14:52 | Outpatient (CLI) | payer MEDICAID | END 2023-06-27 23:59 | disposition home or self-care (01) | LOC: RAD 14:52 | PROVIDERS: ATTEND Surgery | DX: Z48.89 Encounter for other specified surgical aftercare (principal); Z98.890 Other specified postprocedural states; Z90.2 Acquired absence of lung [part of] | CPT/HCPCS: 71046 ==

== ENCOUNTER 2023-09-12 09:31 | Inpatient (IN) | payer MEDICAID ==
[~2023-09-12] VITALS: Ht 149.9 cm; Wt 60.5 kg
[~2023-09-12 09:31] MED LIST changes: -HYDR-3973 PO; +adenosine 3mg/ml 2ml vial IV ONE; +sod chloride 0.9% 10ml flush syringe IV ONE
[2023-09-12 09:57] LABS: BASOPHILS % (AUTO) 0.4 % (0-1); EOSINOPHILS # (AUTO) 0.1 X10'3 (0-0.9); EOSINOPHILS % (AUTO) 0.6 % (0-6); HEMATOCRIT 41.5 % (35.0-45.0); HEMOGLOBIN 13.3 g/dl (12.0-16.0); LYMPHOCYTES # (AUTO) 0.7 X10'3 (1.1-4.8); LYMPHOCYTES % (AUTO) 8.5 % (21-51); MEAN CORPUSCULAR HEMOGLOBIN 26.2 PG (27.0-31.0); MEAN CORPUSCULAR VOLUME 81.8 FL (78-98); MONOCYTES # (AUTO) 0.6 X10'3 (0-0.9); MONOCYTES % (AUTO) 7.3 % (2-12); NEUTROPHILS # (AUTO) 6.6 X10'3 (1.8-7.7); NEUTROPHILS % (AUTO) 83.2 % (42-75); PLATELET COUNT 414 X10'3 (140-440); RED BLOOD COUNT 5.08 X10'6 (4.20-5.60); RED CELL DISTRIBUTION WIDTH 20.9 % (11.5-14.5)
[2023-09-12 10:18] LABS: ALBUMIN 2.8 G/DL (3.4-5.0); ANION GAP 13 (8-16); BLOOD UREA NITROGEN 14 MG/DL (7-18); BUN/CREATININE RATIO 16.7 (10.0-20.0); CALCIUM 8.6 MG/DL (8.5-10.1); CHLORIDE 102 MMOL/L (99-107); CREATININE 0.84 MG/DL (0.40-0.90); GLUCOSE 169 MG/DL (70-104); POTASSIUM 4.5 MMOL/L (3.5-5.1); PRO BRAIN NATRIURETIC PEPTIDE 56 PG/ML (0-125); SODIUM 139 MMOL/L (135-145); TOTAL CARBON DIOXIDE 24.4 MMOL/L (24-32); eCRCL 52 ML/MIN; eGFR 70 ML/MIN
[2023-09-12 10:22] LABS: ANISOCYTOSIS 3+; ELLIPTOCYTES FEW; PLATELET ESTIMATE NORMAL
[2023-09-12] MEDS: adenosine 3mg/ml 2ml vial IV ONE (10:26)
[2023-09-12] MEDS: normal saline 500ml IV soln 1,000 ML IV ONE (10:29)
[2023-09-12] MEDS ORDERED: iohexol 350MG/ML 100ml bottle IV ONE (10:48)
[2023-09-12 11:40] LABS: FREE T4 (FREE THYROXINE) 1.09 NG/DL (0.73-1.40); THYROID STIMULATING HORMONE 15.58 ulU/ml (0.34-4.50)
[2023-09-12] MEDS ORDERED: ondansetron/PF 4mg/2ml inj IV PRN (13:10)
[2023-09-12] MEDS ORDERED: ipratropium/albuterol 3ml nebule NEB PRN (13:10)
[2023-09-12] MEDS ORDERED: potassium Cl 20 mEq SR tablet PO PRN ×2 (13:10)
[2023-09-12] MEDS ORDERED: mag hydrox/Alum hydrox/simeth 30ml oral suspension PO PRN (13:10)
[2023-09-12] MEDS ORDERED: albuterol 2.5 MG/3 ML nebule NEB PRN (13:10)
[2023-09-12] MEDS ORDERED: magnesium 2GM in 50ml NS 50 ML IV PRN (13:10)
[2023-09-12] MEDS ORDERED: acetaminophen 325mg tablet PO PRN (13:10)
[2023-09-12] MEDS ORDERED: magnesium hydroxide 30ml (MOM) UD suspension PO PRN (13:10)
[2023-09-12] MEDS ORDERED: potassium Cl 40MEQ/1/2NS 520ml 520 ML IV PRN (13:10)
[2023-09-12] MEDS ORDERED: HYDROcodone/acetaminophen 10/325mg tab PO PRN (13:10)
[2023-09-12] MEDS ORDERED: magnesium 4gm in 100ml NS 100 ML IV PRN (13:10)
[2023-09-12] MEDS ORDERED: HYDROcodone/acetaminophen 5mg/325mg tablet PO PRN (13:10)
[2023-09-12] MEDS: PERFLUTREN PROTEIN-A MICROSPHR (Optison) 0.22 MG/ML 3ML VIAL IV ONE (13:10)
[2023-09-12 16:35] VITALS: PULSE 89; RESP 16; O2SAT 97
[2023-09-12] MEDS: acetaminophen 325mg tablet PO PRN (17:03)
[2023-09-12] MEDS: heparin, porcine 5000 units/ml vial SQ SCH (17:04)
[2023-09-12 18:00] VITALS: BP 140/83; PULSE 89; RESP 16; TEMP 97.1; O2SAT 98
[2023-09-12 20:00] VITALS: RESP 17
[2023-09-12] MEDS: K and/or MAG REPLACEMENT MC SCH (20:00)
[2023-09-12] MEDS: docusate sod 100mg capsule PO SCH (20:00)
[2023-09-12 20:13] VITALS: PULSE 86; RESP 16; O2SAT 98
[2023-09-12 22:00] VITALS: BP 132/85; PULSE 88; RESP 17; TEMP 98.2; O2SAT 98
[2023-09-13 02:00] VITALS: BP 133/85; PULSE 83; RESP 15; TEMP 98.2; O2SAT 100
[2023-09-13] MEDS ORDERED: APIX5TAB3 PO (02:41)
[2023-09-13] MEDS ORDERED: FOLI1TAB27 PO (02:41)
[2023-09-13 04:52] LABS: BASOPHILS % (AUTO) 0.4 % (0-1); EOSINOPHILS % (AUTO) 1.3 % (0-6); HEMATOCRIT 35.4 % (35.0-45.0); HEMOGLOBIN 11.6 g/dl (12.0-16.0); LYMPHOCYTES # (AUTO) 0.6 X10'3 (1.1-4.8); LYMPHOCYTES % (AUTO) 17.7 % (21-51); MEAN CORPUSCULAR HEMOGLOBIN 26.5 PG (27.0-31.0); MEAN CORPUSCULAR HGB CONC 32.8 g/dL (33.0-36.5); MEAN CORPUSCULAR VOLUME 80.7 FL (78-98); MEAN PLATELET VOLUME 6.9 FL (7.4-10.4); MONOCYTES # (AUTO) 0.4 X10'3 (0-0.9); MONOCYTES % (AUTO) 12.4 % (2-12); NEUTROPHILS # (AUTO) 2.3 X10'3 (1.8-7.7); NEUTROPHILS % (AUTO) 68.2 % (42-75); PLATELET COUNT 333 X10'3 (140-440); RED BLOOD COUNT 4.39 X10'6 (4.20-5.60); RED CELL DISTRIBUTION WIDTH 21.4 % (11.5-14.5); WHITE BLOOD COUNT 3.3 X10'3 (4.5-11.0)
[2023-09-13 05:20] LABS: ALANINE AMINOTRANSFERASE 21 U/L (12-78); ALBUMIN 2.4 G/DL (3.4-5.0); ALBUMIN/GLOBULIN RATIO 0.6 (1.1-1.5); ALKALINE PHOSPHATASE 83 IU/L (46-116); ANION GAP 10 (8-16); ASPARTATE AMINO TRANSFERASE 9 U/L (10-37); BILIRUBIN,TOTAL 0.2 MG/DL (0.1-1.0); BLOOD UREA NITROGEN 13 MG/DL (7-18); BUN/CREATININE RATIO 23.6 (10.0-20.0); CALCIUM 8.5 MG/DL (8.5-10.1); CHLORIDE 107 MMOL/L (99-107); CREATININE 0.55 MG/DL (0.40-0.90); GLUCOSE 104 MG/DL (70-104); MAGNESIUM 1.8 MG/DL (1.5-2.4); SODIUM 144 MMOL/L (135-145); TOTAL CARBON DIOXIDE 26.7 MMOL/L (24-32); TOTAL PROTEIN 6.4 G/DL (6.4-8.2); eCRCL 79 ML/MIN; eGFR > 90 ML/MIN
[2023-09-13 06:00] VITALS: BP 120/76; PULSE 73; RESP 18; TEMP 98.4; O2SAT 97
[2023-09-13 08:00] VITALS: RESP 18; O2SAT 97
[2023-09-13] MEDS: carvedilol 6.25mg tablet PO SCH (08:34)
[2023-09-13] MEDS ORDERED: CARV6.253 PO (10:01)
[2023-09-13 10:41] VITALS: RESP 18; O2SAT 97
[2023-09-13 11:00] VITALS: BP 132/100; PULSE 97; RESP 22; TEMP 97.8; O2SAT 98
[2023-09-15 10:40] LABS: HBSAG SCREEN Negative (Negative); HEP B CORE AB, IGM Negative (Negative); HEP B CORE AB, TOT Negative (Negative)
== END 2023-09-13 11:09 | disposition home or self-care (01) | DRG 201 ==
LOC: ER 09:31 → ED HOLD 13:16 → UNDOADMIN 14:41 → ED HOLD 17:46 → PCU 3S 17:46
PROVIDERS: ADMIT Family Medicine; ATTEND Family Medicine
PROC: B32T1ZZ Computerized Tomography (CT Scan) of Left Pulmonary Artery using Low Osmolar Contrast (ICD-10-PCS; principal; 2023-09-12)
PROC: B3201ZZ Computerized Tomography (CT Scan) of Thoracic Aorta using Low Osmolar Contrast (ICD-10-PCS; 2023-09-12)
PROC: B32S1ZZ Computerized Tomography (CT Scan) of Right Pulmonary Artery using Low Osmolar Contrast (ICD-10-PCS; 2023-09-12)
DX: I47.10 Supraventricular tachycardia, unspecified (principal); I21.A1 Myocardial infarction type 2; C34.92 Malignant neoplasm of unspecified part of left bronchus or lung; E89.0 Postprocedural hypothyroidism; E78.00 Pure hypercholesterolemia, unspecified; I48.0 Paroxysmal atrial fibrillation; I10 Essential (primary) hypertension; F32.A Depression, unspecified; Z86.711 Personal history of pulmonary embolism; Z92.3 Personal history of irradiation; Z80.0 Family history of malignant neoplasm of digestive organs; Z92.21 Personal history of antineoplastic chemotherapy; Z79.01 Long term (current) use of anticoagulants; Z86.73 Personal history of transient ischemic attack (TIA), and cerebral infarction without residual deficits; Z87.891 Personal history of nicotine dependence
CPT/HCPCS: 36415; 71045; 71275; 80048; 80053; 83735; 83880; 84439; 84443; 84484; 85008; 85025; 86704; 86705; 87081; 87340; 92960; 93005; 93306; 94760; 96360; 99291; G0378; J0153; J1644; J3490; J7040; Q9967

== ENCOUNTER 2023-10-27 16:04 | Emergency (ER) | payer MEDICAID ==
[~2023-10-27] VITALS: Ht 149.9 cm; Wt 61.0 kg
[~2023-10-27 16:04] MED LIST changes: +APIX5TAB3 PO; -CARV3.12 PO; +CARV6.253 PO; +FOLI1TAB27 PO; -adenosine 3mg/ml 2ml vial IV ONE; -sod chloride 0.9% 10ml flush syringe IV ONE
[2023-10-27 16:20] VITALS: TEMP 98.5
[2023-10-27] MEDS: adenosine 3mg/ml 2ml vial IV ONE (16:34)
[2023-10-27 16:56] LABS: BASOPHILS % (AUTO) 0.6 % (0-1); EOSINOPHILS % (AUTO) 0.4 % (0-6); HEMATOCRIT 36.9 % (35.0-45.0); HEMOGLOBIN 12.2 g/dl (12.0-16.0); LYMPHOCYTES # (AUTO) 0.9 X10'3 (1.1-4.8); LYMPHOCYTES % (AUTO) 10.9 % (21-51); MEAN CORPUSCULAR HEMOGLOBIN 28.9 PG (27.0-31.0); MEAN CORPUSCULAR HGB CONC 33.1 g/dL (33.0-36.5); MEAN CORPUSCULAR VOLUME 87.2 FL (78-98); MEAN PLATELET VOLUME 7.4 FL (7.4-10.4); MONOCYTES # (AUTO) 0.7 X10'3 (0-0.9); MONOCYTES % (AUTO) 8.6 % (2-12); NEUTROPHILS # (AUTO) 6.3 X10'3 (1.8-7.7); NEUTROPHILS % (AUTO) 79.5 % (42-75); PLATELET COUNT 487 X10'3 (140-440); RED BLOOD COUNT 4.23 X10'6 (4.20-5.60); RED CELL DISTRIBUTION WIDTH 22.1 % (11.5-14.5); WHITE BLOOD COUNT 7.9 X10'3 (4.5-11.0)
[2023-10-27 17:00] LABS: ALBUMIN 2.7 G/DL (3.4-5.0); ANION GAP 12 (8-16); BLOOD UREA NITROGEN 16 MG/DL (7-18); BUN/CREATININE RATIO 20.8 (10.0-20.0); CALCIUM 9.2 MG/DL (8.5-10.1); CHLORIDE 102 MMOL/L (99-107); CREATININE 0.77 MG/DL (0.40-0.90); GLUCOSE 165 MG/DL (70-104); PRO BRAIN NATRIURETIC PEPTIDE 100 PG/ML (0-125); SODIUM 140 MMOL/L (135-145); TOTAL CARBON DIOXIDE 25.9 MMOL/L (24-32); eCRCL 56 ML/MIN; eGFR 78 ML/MIN
[2023-10-27] MEDS ORDERED: CARV6.253 PO (17:14)
[2023-10-27 17:58] VITALS: BP 117/79; PULSE 104; RESP 2; O2SAT 98
[2023-10-27] MEDS ORDERED: adenosine 3mg/ml 2ml vial IV ONE (19:00)
== END 2023-10-27 18:01 | disposition home or self-care (01) ==
LOC: ER 16:06
DX: I47.10 Supraventricular tachycardia, unspecified (principal); R00.2 Palpitations; E78.00 Pure hypercholesterolemia, unspecified; I10 Essential (primary) hypertension; E03.9 Hypothyroidism, unspecified; Z79.899 Other long term (current) drug therapy
CPT/HCPCS: 71045; 80048; 83880; 84484; 85025; 93005; 96374; 99291; J0153

== ENCOUNTER 2025-03-26 10:28 | Inpatient (IN) | payer MEDICAID ==
[~2025-03-26] VITALS: Ht 149.9 cm; Wt 63.6 kg
--- NOTE | 2025-03-26 11:10 | ELECTROCARDIOGRAPH REPORT ---
[facility] Test Date: 2025-03-26 Test Time: 11:07:37 Pat Name: ENZO HERNANDEZ Department: [facility] Patient ID: [id number] Room: Gender: F Cell Tester: : 1970 Requested By: TABATHA CASANOVA Order Number: [id number] Reading MD: Measurements Intervals [place] Rate: 86 P: 64 RI: 141 QRS: -24 QRSD: 73 T: 83 QT: 347 QTc: 415 Interpretive Statements Sinus rhythm Borderline left axis deviation ST elevation, consider inferior injury Please click the below link to view image of tracing.
[2025-03-26 11:17] LABS: MEAN PLATELET VOLUME 7.2 FL (7.4-10.4); RED CELL DISTRIBUTION WIDTH 17.0 % (11.5-14.5)
--- NOTE | 2025-03-26 11:27 | RADIOLOGY REPORT ---
CHEST RADIOGRAPH Indication: sob Technique: Single frontal view of the chest was obtained COMPARISON: DI CHEST,SINGLE VIEW on DOS: 10/27/23, DI CHEST,SINGLE VIEW on DOS: 09/12/23, DI CHEST,TWO VIEWS on DOS: 06/27/23, DI CHEST,TWO VIEWS on DOS: 05/31/23, DI CHEST,SINGLE VIEW on DOS: 05/16/23 FINDINGS: Lines and Tubes: None Lungs: Opacification of the left hemithorax. Pleura: No effusion. No pneumothorax. Cardiomediastinal contours: Unremarkable Bones: Unremarkable IMPRESSION: Left pneumonectomy. No acute findings.
[2025-03-26 11:29] LABS: CREATININE 0.99 MG/DL (0.40-0.90); PRO BRAIN NATRIURETIC PEPTIDE 310 PG/ML (0-125); TOTAL CARBON DIOXIDE 30.8 MMOL/L (24-32); eCRCL 43 ML/MIN; eGFR 58 ML/MIN
--- NOTE | 2025-03-26 12:34 | RADIOLOGY REPORT ---
EXAM: CT CTA CHEST PE W/ IV CONTRAST HISTORY: shortness of breath, chest pain, history of lung cancer status post left pneumonectomy in 2022 COMPARISON: CT CTA CHEST PE on DOS: 09/12/23, chest x-ray dated 03/26/2025. TECHNIQUE: Helical CT images of the chest were performed with 100 mL omnipaque 350 IV contrast using pulmonary CTA protocol. Sagittal and coronal reformatted images and 3D MIP images were obtained. This CT exam was performed using 1 or more of the following dose reduction techniques: Automated exposure control, adjustment of the mA and/or kv according to patient size, or the use of iterative reconstruction techniques. Radiation Dose: Chest: CTDI volume is 13.09 mGy. Dose-length product is 441.11 mGy*cm. FINDINGS: No pulmonary arterial filling defects are identified. There are postoperative changes of left pneumonectomy with associated leftward shift of the heart and mediastinum. There is a small right pleural effusion with mild dependent atelectasis in the right lung base, both of which are new compared with CT scan dated 09/12/2023. There is mild peribronchial thickening. No pneumothorax, pulmonary edema, or noncalcified pulmonary nodules are identified. No suspicious mediastinal or axillary adenopathy. The heart is enlarged. There is a small pericardial effusion. No thoracic aortic aneurysm or dissection. There are multiple subcentimeter nonobstructing left renal calculi. The liver is diffusely fatty density. There are multiple left upper quadrant splenules. There is mild thoracic degenerative disc disease. There is mild thoracic dextroscoliosis. IMPRESSION: 1. No evidence of pulmonary embolism. 2. Postoperative changes of left pneumonectomy with associated leftward shift of the heart and mediastinum. 3. Small right pleural effusion and mild atelectasis of the right lower lobe, new versus chest CT dated 09/12/2023. 4. Cardiomegaly and small pericardial effusion. 5. Hepatic steatosis. 6. Nonobstructing left nephrolithiasis. The kidneys are not fully imaged here.
[2025-03-26 13:54] LABS: APTT 31 SECONDS (22-32)
[2025-03-26] MEDS: heparin 10,000 units/1 ML INJ IV ONE (14:02)
[2025-03-26] MEDS: heparin 25,000 UNIT/250ml bag 250 ML IV PRN (14:03)
[2025-03-26] MEDS: HEPARIN DRIP-CARDIAC**PHARMACIST-TO-DOSE IV ONE (14:04)
[2025-03-26] MEDS: MESSAGE TO NURSING IV ONE ×2 (14:04→22:21)
[2025-03-26] MEDS ORDERED: mag hydrox/Alum hydrox/simeth 30ml oral suspension PO PRN (15:00)
[2025-03-26] MEDS ORDERED: potassium Cl 40MEQ/1/2NS 520ml 520 ML IV PRN (15:00)
[2025-03-26] MEDS ORDERED: ondansetron/PF 4mg/2ml inj IV PRN (15:00)
[2025-03-26] MEDS ORDERED: magnesium Cl slow-release 64mg tablet PO PRN (15:00)
[2025-03-26] MEDS ORDERED: magnesium sulf-water 4G/100mL 100 ML IV PRN (15:00)
[2025-03-26] MEDS ORDERED: potassium Cl 20 mEq SR tablet PO PRN ×2 (15:00)
[2025-03-26] MEDS ORDERED: magnesium hydroxide 30ml (MOM) UD suspension PO PRN (15:00)
[2025-03-26] MEDS ORDERED: magnesium sulf-water 2g/50mL 50 ML IV PRN (15:00)
[2025-03-26] MEDS: PERFLUTREN PROTEIN-A MICROSPHR (Optison) 0.22 MG/ML 3ML VIAL IV ONE (15:03)
--- NOTE | 2025-03-26 16:40 | Physician Documentation ---
History of Present Illness ~ Chief Complaint: Shortness of Breath Stated Complaint: POSS PNEUMONIA Time Seen by MD: 10:56 Primary Medical Doctor: [facility] Mode of Arrival: Ambulatory HPI 54 year old female with a one year long recent history of L sided lung adenocarcinoma, resulting in extensive therapy including a complete L pneumonec renetta, chemo and radiation therapy. She presents reporting several days of chest pressure which is worse on deep inspiration. She denies fever, shortness of breath (other than her chronic shortness of breath). She reports a chronic cough since her pneumonectomy. She denies fever, N/V/D. Medication Reconciliation Allergies: Coded Allergies: No Known Allergies (Unverified , 09/12/23) Scheduled Apixaban (Eliquis), 1 TAB PO BID, (Reported) Atorvastatin Calcium (Atorvastatin Calcium), 1 TAB PO HS, (Reported) Carvedilol (Carvedilol), 6.25 MG PO BID Carvedilol (Carvedilol), 1 TAB PO as directed Enoxaparin Sodium* (Lovenox*), 40 MG SQ BID, (Reported) Folic Acid* (Folic Acid*), 1 TAB PO DAILY, (Reported) Levothyroxine Sodium* (Synthroid*), 88 MCG PO DAILY@07 Multivit-Minerals/Folic Acid (Centrum Adult 50 Plus Gummy), 1 TAB PO DAILY, (Reported) Past Medical History Past Medical History: High Cholesterol, Hypertension, Hypothyroidism, Lung Cancer, Depression Past Surgical History: cancer surgery Patient History: FH: colon cancer Maternal Grandmother Maternal Grandfather FH: pancreatic cancer Paternal Grandmother Smoking Status: Never smoker Alcohol Use: Occasionally Drug Use: none Lives In: Home Review of Systems All Other Systems at this time: Reviewed and Negative Physical Exam Vital Signs: RN Vital Signs have been reviewed: Yes, Temperature: 97.8, Source: Temporal, Heart Rate: 89, Respiratory Rate: 20, BP: 102/69, Pulse Oximetry: 95, Weight: 63.640 Oxygen Flow Rate: 0 Physical Exam HEENT: PERRL, moist oral mucosa, EOMI Pulmonary: No respiratory distress; R lung sounds unremarkable/clear, L lung sounds absent Cardiac: RRR, no murmur, rub or gallop MSK: no deformity Skin: w/d/i, no rash Neuro: alert, nonfocal Psych: normal affect Progress Results/Orders Results/Orders Orders - TABATHA CASANOVA MD Culture Blood (03/26/25 10:42) Saline Lock (03/26/25 10:42) Oxygen (03/26/25 10:42) Chest,Single View (03/26/25 10:42) Cta Chest Pe (03/26/25 11:26) Page Hospitalist (03/26/25 13:28) Completed Orders - TABATHA CASANOVA MD Cbc/Diff (03/26/25 10:42) BMP (03/26/25 10:42) PBNP (03/26/25 10:42) Lacticsepsis (03/26/25 10:42) Stat Ekg (03/26/25 ) Chest,Single View (03/26/25 10:42) Cta Chest Pe (03/26/25 11:26) Iohexol 350mg/Ml 100ml (Omnipaque 350mg/ (03/26/25 11:51) Hs Troponin I W Calculations (03/26/25 12:46) Hs Troponin I W Calculations (03/26/25 13:22) Heparin Drip Acs*Rph-To-Dose* (Heparin D (03/26/25 13:25) PTT (03/26/25 13:22) Hgb A1c (03/26/25 10:54) Vital Signs 03/26/25 03/26/25 03/26/25 03/26/25 10:39 10:53 11:36 12:51 Temp 97.8 Pulse 86 84 83 Resp 18 18 16 B/P (MAP) 117/72 118/73 (88) 117/72 (87) Pulse Ox 97 95 96 O2 Flow Rate 0 0 Laboratory Tests Test 03/26/25 10:54 03/26/25 13:32 White Blood Count 9.5 Red Blood Count 4.83 Hemoglobin 12.9 Hematocrit 40.1 Mean Corpuscular Volume 83.2 Mean Corpuscular Hemoglobin 26.7 L Mean Corpuscular Hemoglobin Concent 32.1 L Red Cell Distribution Width 17.0 H Platelet Count 390 Mean Platelet Volume 7.2 L Neutrophils (%) (Auto) 84.3 H Lymphocytes (%) (Auto) 7.5 L Monocytes (%) (Auto) 7.4 Eosinophils (%) (Auto) 0.6 Basophils (%) (Auto) 0.2 Neutrophils # (Auto) 8.0 H Lymphocytes # (Auto) 0.7 L Monocytes # (Auto) 0.7 Eosinophils # (Auto) 0.1 Basophils # (Auto) 0.0 CBC Comment Sodium Level 136 Potassium Level 4.4 Chloride Level 97 L Carbon Dioxide Level 30.8 Anion Gap 8 Blood Urea Nitrogen 16 Creatinine 0.99 H Estimated GFR/1.73 m2 58 BUN/Creatinine Ratio 16.2 Glucose Level 174 H Hemoglobin A1c 6.1 Lactic Acid Level 2.0 Calcium Level 8.9 Troponin I High Sensitivity 1973 *H 2912 *H Pro-B-Type Natriuretic Peptide 310 H Albumin 3.1 L Chemistry Comments Activated Partial Thromboplast Time 31 Coagulation Comments Troponin I High Sens Percent Delta 47 Troponin I Hi Sens Absolute Change 939 Microbiology Date/Time Source Procedure Growth Status 03/26/25 11:02 Blood Arm Left Blood Culture - Preliminary NEGATIVE (LESS THAN 24 HOURS) Resulted EKG/XRAY/CT/US/VASC/MRI Chest X-Ray : Interpreted By: self Views: 1 VIEW Indication: chest pain Lungs: effusion Mediastinum: normal Ribs/Bones: normal Abdomen: normal Impression: no acute disease Medical Decision Making Findings 54 year old female with chest pressure as above. Workup was significant for an elevated troponin suggesting NSTEMI. Started heparin, care transferred to hospitalist. Differential Dx:Considerations: Include: anxiety, myocardial infarction, panic attack, pneumonia, pneumothorax, pulmonary embolism, respiratory distress, upper resp. infection Departure Disposition: ADMITTED INPATIENT Impression: Primary Impression: NSTEMI (non-ST elevated myocardial infarction) Condition: Stable Referrals: NO PRIMARY CARE PROVIDER (PCP) Education Educated: Patient, Family Educated regarding: diagnosis, treatment, prognosis, need for follow up Signature Scribe Signature: . Attestation: . TABATHA CASANOVA MD Mar 26, 2025 16:39
[2025-03-26 17:32] LABS: LEUKOCYTE ESTERASE ,URINE TRACE (Neg); NITRITES, URINE POSITIVE (Neg); OCCULT BLOOD,URINE TRACE-INTACT (Neg)
[2025-03-26 17:34] LABS: UA COLLECTION TYPE CLN CATCH MIDSTREAM
[2025-03-26 17:45] LABS: SQUAMOUS EPITHELIAL CELL,UR FEW /LPF (FEW)
[2025-03-26] MEDS ORDERED: CARV3.1244 PO (17:58)
[2025-03-26] MEDS ORDERED: CITA20TA17 PO (17:58)
[2025-03-26] MEDS ORDERED: LEVO75TA7 PO (17:58)
--- NOTE | 2025-03-26 18:59 | HISTORY AND PHYSICAL-Residence ---
History & Physical Providers to CC Resident Creating Document: JASON RANDLE, RES ~ History of Present Illness Primary Medical Doctor: [facility] Reason for Admit\Complaint: Chest pain History of Present Illness A 54-year-old female with a history of left lung resection for malignancy (2022), hypertension, prior pulmonary embolism on apixaban, and remote history of supraventricular tachycardia, presented to the ED with chest pain ongoing for the past two days. The pain began after an episode of exertion and was described as constant, tight, and severe, lasting for several hours at a time. It involved the entire chest, radiating to the neck and back, and was worse when lying flat. She attempted symptomatic relief with her home oxycodone, but the pain did not improve. She denied associated cough, rhinorrhea, or other upper-respiratory symptoms. She did endorse a subjective fever episode recently. She denied palpitations, syncope, hemoptysis, or leg swelling. No orthopnea or paroxysmal nocturnal dyspnea was reported. There is no history of diabetes mellitus, smoking history is unclear, and she reports of using apixaban for a a year for her prior pulmonary embolism. Her oncologic treatment history is limited to surgical resection with recent chemotherapy and radiation therapy over the last year. She also received immunotherapy until the last week. On arrival to the ED, her vital signs were stable. ECG showed normal sinus rhythm without acute ST-T changes, but troponins were elevated, consistent with nonST elevation myocardial infarction (NSTEMI). Patient has a family history of colon cancer (grandmother and great- grandmother), she had a colonoscopy 5 years ago, and is due for one. Allergies: Coded Allergies: No Known Allergies (Unverified , 09/12/23) Home Medications Home Medications Active Reported Citalopram HBr (Citalopram Hydrobromide) 20 Mg Tablet 1 Tab PO DAILY Levothyroxine Sodium 75 Mcg Tablet 1 Tab PO DAILY Carvedilol 3.125 Mg Tablet 1 Tab PO BID Centrum Adult 50 Plus Gummy (Multivit-Minerals/Folic Acid) 80 Mcg Tab.chew 1 Tab PO DAILY Past Medical History Past Medical History Graves disease Supraventricular tachycardia Depression Hypothyroidism Adenocarcinoma of the left lung Pulmonary embolisms Past Surgical History Surgical History Comment Status post left pneumonectomy for lung carcinoma SVT status post ablation Family History Family History: FH: colon cancer Maternal Grandmother Maternal Grandfather FH: pancreatic cancer Paternal Grandmother Past Social History Social History Comment Denied smoking alcohol and illicit drug use Alcohol Use: Occasionally Drug Use: None Lives In: Home ROS ROS Constitutional: No fever, chills, dizziness, weight gain or loss Eyes: No pain, erythema, discharge, blurring of vision ENT: No sore throat, epistaxis, tinnitus Cardiovascular: reports chest pain. No Chest pressure, palpitations, syncope, lower extremity edema, paroxysmal nocturnal dyspnea Respiratory: No Shortness of breath and cough present, No hemoptysis Gastrointestinal: Normal appetite. No nausea, vomiting, diarrhea, constipation, hematemesis, abdominal pain, bloating, melena or fresh blood Musculoskeletal: No chronmic edema. Integumentary: No change in skin, hair, nails. No swelling, bruising, abrasions Neurologic: No headache, neck pain, numbness or tingling of the extremities, weakness Psychiatric: No delusions, depression, loss of interest in normal activity or change in sleep pattern, hallucinations, suicidal ideations Endocrine: No fatigue, weakness, polydipsia, polyuria, change in appetite, heat or cold intolerance, sweating, dry skin Hematological: No bleeding, petechiae, bruising Allergies: No asthma or urticaria Exam Vitals: Vital Signs Date Time Temp Pulse Resp B/P (MAP) Pulse Ox O2 Delivery O2 Flow Rate FiO2 03/26/25 18:34 83 19 116/75 (89) 95 03/26/25 15:31 0 03/26/25 10:39 97.8 General: Awake , alert, and oriented x4, resting comfortably in the bed, in no acute distress HEENT: Atraumatic, normocephalic, EOMI, anicteric sclera ; pink conjunctiva Neck: Trachea midline. Supple, full range of motion, no JVD Cardiac: Regular rhythm, regular rate with no murmurs all over the precordium. Respiratory: Diminished breath sounds left-side, no tachypnea, no wheezing ,rub or rales, Chest wall is symmetric and without deformity. Gastrointestinal: Abdomen symmetric, non-distended, soft, non-tender, normal bowel sounds x4 quadrant, normoactive, no hepatosplenomegaly Musculoskeletal: No pedal edema, no cyanosis Neurological: Speech is clear, alert, and oriented x 4. No motor or sensory deficit, deep tendon reflexes normal, cerebellar intact. Cranial nerves II-XII intact. Skin: hyper and hypopigmented patches skin all over the upper extremities, legs and face Diagnostic Data Last Recorded Lab Results: 03/26/25 1054 03/26/25 1054 Diagnostic Data: Laboratory Tests Test 03/26/25 13:32 Activated Partial Thromboplast Time 31 SECONDS (22-32) Coagulation Comments Advance Care Planning Advanced Care plannin - 30 Minutes Additional Plan 1. NSTEMI (NonST Elevation Myocardial Infarction) HEART score = 5 (moderatehigh risk). RANULFO = 1 (low, limited by available data). Killip class I (no signs of HF). Patient presents with typical ischemic chest pain (constant, tight, radiating to neck/back, worse when lying flat), elevated troponin, and normal ECG. Plan: Patient admitted to to telemetry. Troponins: 1972, 2911, 2929 Cardiology consult, appreciate recommendations Aspirin 325 mg PO once followed by aspirin 81 mg daily Atorvastatin 80 mg PO daily. Continued home medication carvedilol 3.125 mg p.o. b.i.d. Nitroglycerin SL PRN for chest pain if SBP >90. 2. Anticoagulation (History of pulmonary embolisms) Patient is on apixaban for prior PE for 1 year. Currently not on any anticoagulation, completed her course of apixaban Plan: No further anticoagulation until evaluation by Cardiology for possible PCI Continue heparin drip CTA during this admission: Ruled out pulmonary embolisms 3. Hypertension Chronic risk factor for ASCVD. No acute hypertensive urgency/emergency reported. Plan: Continue carvedilol 3.125 mg p.o. b.i.d. Monitor blood pressures daily 4. History of Left Lung Resection for Malignancy (2022) Monitor regularly for baseline respiratory reserve and cancer surveillance. May complicate chest imaging and respiratory management. Plan: Chest x-ray: Left pneumon ectomy. No acute findings. CTA chest: No evidence of pulmonary embolism. Postoperative changes of left pneumonectomy with associated leftward shift of the heart and mediastinum. Small right pleural effusion and mild atelectasis of the right lower lobe, new versus chest CT dated 09/12/2023.Cardiomegaly and small pericardial effusion.Hepatic steatosis.Nonobstructing left nephrolithiasis. Oncology follow-up for cancer surveillance as outpatient. Pending procalcitonin levels 5. Hypothyroidism TSH levels ordered Continue home medications levothyroxine 6. Depression: Continue home medications citalopram 7. UTI: Urinalysis positive for UTI, ordered Rocephin 1 g IV daily Code Status: Full code DVT Prophylaxis: Heparin drip Analgesia/ Sedation: Morphine Line/tubes: P IV Nutrition: Heart healthy diet PT: Ordered Prognosis: Guarded Disposition: Continue tele monitoring Jason Randle MD Internal Medicine Resident, PGY-2 Date of Service: Mar 26, 2025 Billing Provider: PARISH GUY MD Common Visit Codes: [id number] INP/OBS CARE (HIGH) Secondary Visit Codes: [id number] CARE PLAN 30 MINUTES JASON RANDLE, RES Mar 26, 2025 18:58 PARISH GUY MD Mar 28, 2025 08:19
--- NOTE | 2025-03-26 19:12 | CARDIOLOGY REPORT ---
APPROVED REPORT EXAM: Comprehensive 2D, Doppler, and color-flow Echocardiogram. Patient Location: ER RM 8 Blood Pressure: 102/69 mmHg Heart Rate: 86 bpm Rhythm: Sinus Indications Congestive Heart Failure Troponin: 2911 ProBNP: 310 HX of Supraventricular Tachycardia Ablation Hypertension Lung Cancer HAND QUILTER: David Aquino MD Previous ECHO: Unavailable 2D Dimensions IVSd 1.1 (0.7-1.1cm) LVDd 4.0 cm PWd 1.0 (0.7-1.1cm) IVSs 1.4 (0.8-1.2cm) LVDs 2.3 (2.5-4.0cm) PWs 1.7 (0.8-1.2cm) LVOT Diameter 1.89 (1.8-2.4cm) LVEF(%) 74.2 (>50%) Ao Asc Diam. 2.97 cm IVC 12.05 mm FS (%) 42.6 % SV 50.7 ml CO 4.4 L/min M-Mode Dimensions Left Atrium(MM) 2.85 (2.5-4.0cm) Aortic Root 3.30 (2.2-3.7cm) Aortic Cusp Exc 1.78 (1.5-2.0cm) Aortic Valve AoV Peak Mario Alberto. 140.2 cm/s AoV VTI 23.9 cm AO Peak GR. 7.9 mmHg AO Mean GR. 5 mmHg LVOT VTI 21.84 cm LVOT Peak Mario Alberto. 121.0 cm/s MICHELLE(VTI)/BSA 2.57 cm2/m2 MICHELLE (VTI) 2.57 cm2 Mitral Valve MV E Velocity 83.4 cm/s MV Peak Gr. 5 mmHg MV DECEL TIME 256 ms MV A Velocity 91.4 cm/s MV PHT 44 ms E/A Ratio 0.9 MVA (PHT) 5.00 cm2 MV VMax 107.0 cm/s TDI Lateral E' P. V 7.70 cm/s E/Lateral E' 10.8 Tricuspid Valve TR P. Velocity 194 cm/s RAP ESTIMATE 10 mmHg TR Peak Gr. 15 mmHg RVSP 25 mmHg LEFT VENTRICLE Normal LV size and wall thickness. Overall systolic function is normal. LVEF is 65-70%. RIGHT VENTRICLE Right ventricle is grossly normal in size and function. ATRIA The left atrium size is normal. AORTIC VALVE Trileaflet AV appears mildly sclerotic without stenosis. No insufficiency. MITRAL VALVE Mild mitral annular calcification without stenosis. Trace regurgitation. TRICUSPID VALVE The tricuspid valve is normal in structure with trace regurgitation. PULMONIC VALVE The pulmonary valve is normal in structure with physiologic insufficiency. GREAT VESSELS The aortic root is normal in size. The ascending aorta is normal in size. The IVC is normal in size and collapses >50% with inspiration. PERICARDIUM Mild circumferential pericardial effusion without hemodynamic compromise. No echo indications of pericardial tamponade. Other Information Study Quality: Adequate Conclusion Normal LV size and wall thickness. Overall systolic function is normal. LVEF is 65-70%. Right ventricle is grossly normal in size and function. The left atrium size is normal. Trileaflet AV appears mildly sclerotic without stenosis. No insufficiency. Mild mitral annular calcification without stenosis. Trace regurgitation. The tricuspid valve is normal in structure with trace regurgitation. Mild circumferential pericardial effusion without hemodynamic compromise. No echo indications of pericardial tamponade.
[2025-03-26 19:53] VITALS: BP 124/76; PULSE 82; RESP 16; TEMP 97.7; O2SAT 95
[2025-03-26 20:00] VITALS: RESP 20; O2SAT 93
[2025-03-26] MEDS: K and/or MAG REPLACEMENT MC SCH (20:00)
--- NOTE | 2025-03-26 20:03 | CONSULTATION REPORT - RESIDENT ---
Consult Providers to CC Resident Creating Document: JORDAN BASUZI Serrano RES History of Present Illness Reason for Admit\Complaint: Chest pain History of Present Illness 54 years old female patient came to the hospital with chief complaint of chest pain. The patient states that she had an episode of chest pain two days ago, it was localized in the level of the left side of the chest, with radiation to the neck. The patient describes this chest pain as a sharp type, 10/10 in intensity. The patient states that the pain did not subside completely, the pain currently became as a pressure type. Initially the patient decided to take oxycodone which did not help. Today as the patient was having still some pressure, the patient decided to take another oxycodone. He currently scales her pain as 1/10 in intensity, pressure type, radiation to the neck. The patient also endorses some shortness of breath and sweating when the pain was intense. We were consulted due to chest pain and elevated troponins. Allergies: Coded Allergies: No Known Allergies (Unverified , 09/12/23) Home Medications Home Medications Active Reported Citalopram HBr (Citalopram Hydrobromide) 20 Mg Tablet 1 Tab PO DAILY Levothyroxine Sodium 75 Mcg Tablet 1 Tab PO DAILY Carvedilol 3.125 Mg Tablet 1 Tab PO BID Centrum Adult 50 Plus Gummy (Multivit-Minerals/Folic Acid) 80 Mcg Tab.chew 1 Tab PO DAILY Past Medical History Past Medical History Graves disease s/p radiation 20 years ago, currently taking levothyroxine. Supraventricular tachycardia Depression Dyslipidemia. Hypertension. Hypothyroidism currently taking levothyroxine. Adenocarcinoma of the left lung S/P left pneumonectomy in 2022, the patient also received radiation, chemotherapy unless dose of immunotherapy last week. Pulmonary embolism in 2022 with the patient was found with mass in the level of the lung. Past Surgical History Surgical History Comment Status post left pneumonectomy for lung carcinoma SVT status post ablation Family History Family History: FH: colon cancer Maternal Grandmother Maternal Grandfather FH: pancreatic cancer Paternal Grandmother Past Social History Social History Comment Smoking: Patient quit smoking in 2022. Alcohol she does have a history of heavy alcohol consumption several years ago. 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 Lives with her family. Drug use: Marijuana. Exam Vitals: Vital Signs Date Time Temp Pulse Resp B/P (MAP) Pulse Ox O2 Delivery O2 Flow Rate FiO2 03/26/25 19:35 84 18 110/67 (81) 95 03/26/25 15:31 0 03/26/25 10:39 97.8 Physical exam: General: Well alert, well oriented, not confused, not agitated, not in acute distress, well cooperated during the physical. HEENT: Conjunctive are pink, sclerae clear, no icterus, pupil is equal in both sides, reactive to light, no ear discharge, no pharyngeal erythema or an edema. Neck: Supple, no JVD, no lymphadenopathy and thyromegaly. Chest: No air entry in the level of the left lung, no evidence of wheezing or crackles right side of the thorax. Cardiovascular: S1-S2 regular sinus rhythm and, regular rate, no gallops, no rubs, no murmurs Abdomen: No visible peristalsis, Bowel sounds present on auscultation, soft, nontender, no guarding, no rigidity Extremities: No obvious deformities, no pitting edema bilaterally, capillary refill intact, peripheral pulsations are intact on both sides Central Nervous System: No focal neurological deficits, no motor or sensory weakness in all 4 extremities, could move all 4 extremities, 2+ deep tendon reflexes, negative Babinski. Musculoskeletal: No joint swelling, deformities, inflammations, and no scoliosis and back tenderness Skin: Warm and dry. Diagnostic Data Last Recorded Lab Results: 03/26/25 1054 03/26/25 1054 Diagnostic Data: Laboratory Tests Test 03/26/25 13:32 Activated Partial Thromboplast Time 31 SECONDS (22-32) Coagulation Comments Additional Plan Assessment and plan: 54 years old female patient came to the hospital with chief complaint of chest pain. NSTEMI: A: The patient came to the hospital with chief complaint of chest pain. Troponin levels: [id number]. Plan: Plan for coronary angiogram tomorrow. Risks and benefits discussed with the patient. Continue heparin drip. Aspirin 81 mg daily. Atorvastatin 80 mg daily. Lipid panel in a.m.. Nitroglycerin 0.4 mg as needed for chest pain. Atorvastatin 80 mg PO daily. On carvedilol 3.125 mg b.i.d.. Anticoagulation (History of pulmonary embolisms) Hypertension History of Left Lung Resection for Malignancy (2022) Hypothyroidism: Follow-up TSH. Depression UTI Continue management as per primary team. Code status: Full code DVT prophylaxis: Heparin Analgesia/sedation: Morphine Line/tube: PIV GI prophylaxis: None Nutrition: Heart healthy diet. PT: Yes Prognosis: Guarded Disposition: Plan for coronary angiogram tomorrow. Suzi Mullen Internal Medicine Resident [facility] Date of Service: Mar 26, 2025 Billing Provider: DARYA NUNEZ MD,SUZI SANABRIA, RES Mar 26, 2025 20:03
[2025-03-26 22:00] VITALS: BP 93/54; PULSE 72; RESP 17; TEMP 97.6; O2SAT 93
[2025-03-26] MEDS: docusate sod 100mg capsule PO SCH (22:13)
[2025-03-26] MEDS: heparin 10,000 units/1 ML INJ IV PRN (22:17)
[2025-03-27] VITALS (14 sets, daily range): BP systolic 95–147; BP diastolic 58–81; PULSE 65–84; RESP 13–29; TEMP 97–98.3; O2SAT 90–99
[2025-03-27 05:17] LABS: MEAN PLATELET VOLUME 7.1 FL (7.4-10.4); RED CELL DISTRIBUTION WIDTH 17.0 % (11.5-14.5)
[2025-03-27 05:30] LABS: CHOL/HDL RATIO 4.5 (0.00-4.99); CREATININE 0.80 MG/DL (0.40-0.90); LDL CHOLESTEROL 117 MG/DL (50-100); TOTAL CARBON DIOXIDE 32.5 MMOL/L (24-32); eCRCL 54 ML/MIN; eGFR 74 ML/MIN
[2025-03-27] MEDS: MESSAGE TO NURSING IV ONE (05:57)
[2025-03-27] MEDS ORDERED: verapamil 2.5 mg/ml inj IV ONE (07:18)
[2025-03-27] MEDS ORDERED: midazolam 1 mg/ML 2ml injection ONE (07:18)
[2025-03-27] MEDS ORDERED: LIDOcaine 1% (10mg/ml) 2ml vial ONE (07:18)
[2025-03-27] MEDS ORDERED: fentaNYL/PF 50MCG/1 ML 2ML syringe ONE (07:19)
[2025-03-27] MEDS ORDERED: heparin 1,000unit/ml 10ml vial 10 ML ONE (07:19)
[2025-03-27] MEDS ORDERED: iohexol 350 MG/ML 50ML vial IV ONE (07:19)
[2025-03-27] MEDS ORDERED: nitroGLYCERIN 500mcg/5mL D5W 5 ML IV ONE (07:20)
[2025-03-27] MEDS: multivitamins, therapeutics tablet PO SCH (10:10)
[2025-03-27] MEDS: levoTHYROXINE 75mcg tablet PO SCH (10:10)
[2025-03-27] MEDS: normal saline 1000ml 1,000 ML IV ONE (10:11)
[2025-03-27] MEDS: CefTRIAXone/D5W-Rocephin 1gm 50 ML IV SCH (10:11)
[2025-03-27 11:59] LABS: ISTAT HGB ART 11.2 g/dl (12.0-16.0); ISTAT Hct ART 33 %PCV (35-45); ISTAT O2 SATURATION ARTERIAL 95 % (95-98); ISTAT SOURCE BLNK
[2025-03-27 11:59] LABS: ISTAT HGB MIX 11.2 g/dl (12.0-16.0); ISTAT Hct MIX 33 %PCV (35-45); ISTAT O2 SATURATION MIX VENOUS 63 % (60-80); ISTAT SOURCE BLNK
--- NOTE | 2025-03-27 12:33 | PROGRESS NOTE- Residence ---
Progress Note - Resident Providers to CC Resident Creating Document: JASON RANDLE RES ~ Antibiotic Timeout Antibiotic Ordered?: Yes Subjective Patient was seen and examined at bedside, patient is scheduled to undergo cardiac catheterization today. Objective Vital Signs Date Time Temp Pulse Resp B/P (MAP) Pulse Ox O2 Delivery O2 Flow Rate FiO2 03/27/25 11:00 97.9 79 20 107/76 (86) 98 Room Air 03/27/25 08:00 0.0 Result Diagram: 03/27/25 0500 03/27/25 0500 Awake , alert, and oriented x4, resting comfortably in the bed, in no acute distress HEENT: Atraumatic, normocephalic, EOMI, anicteric sclera ; pink conjunctiva Neck: Trachea midline. Supple, full range of motion, no JVD Cardiac: Regular rhythm, regular rate with no murmurs all over the precordium. Respiratory: Diminished breath sounds left-side, no tachypnea, no wheezing ,rub or rales, Chest wall is symmetric and without deformity. Gastrointestinal: Abdomen symmetric, non-distended, soft, non-tender, normal bowel sounds x4 quadrant, normoactive, no hepatosplenomegaly Musculoskeletal: No pedal edema, no cyanosis Neurological: Speech is clear, alert, and oriented x 4. No motor or sensory deficit, deep tendon reflexes normal, cerebellar intact. Cranial nerves II-XII intact. Skin: hyper and hypopigmented patches skin all over the upper extremities, legs and face Coagulation Studies Laboratory Tests Test 03/26/25 13:32 03/27/25 08:07 03/27/25 12:05 Activated Partial Thromboplast Time 31 SECONDS (22-32) Activated Clotting Time 199 SEC (101-148) H Coagulation Comments Advance Care Planning Advanced Care plannin - 30 Minutes Plan Plan 1. NSTEMI (NonST Elevation Myocardial Infarction) HEART score = 5 (moderatehigh risk). RANULFO = 1 (low, limited by available data). Killip class I (no signs of HF). Patient presents with typical ischemic chest pain (constant, tight, radiating to neck/back, worse when lying flat), elevated troponin, and normal ECG. Plan: Patient admitted to to telemetry. Troponins: 1972, 2912, 2930 Cardiology consult, appreciate recommendations Aspirin 325 mg PO once followed by aspirin 81 mg daily Atorvastatin 80 mg PO daily. Continued home medication carvedilol 3.125 mg p.o. b.i.d. Nitroglycerin SL PRN for chest pain if SBP >90. 03/27/2025: Patient to undergo cardiac catheterization today Continue aspirin 81 mg daily, atorvastatin 80 mg daily Beta blockers-carvedilol 3.125 mg p.o. b.i.d. Patient is relieved off chest pain currently Awaiting cardiac catheterization results 2. Hyperlipidemia Lipid panel triglycerides 167, cholesterol 213, LDL 117 Continue atorvastatin 80 mg daily 3. Anticoagulation (History of pulmonary embolisms) Patient is on apixaban for prior PE for 1 year. Currently not on any anticoagulation, completed her course of apixaban Plan: No further anticoagulation until evaluation by Cardiology for possible PCI Continue heparin drip CTA during this admission: Ruled out pulmonary embolisms 4. Hypertension Chronic risk factor for ASCVD. No acute hypertensive urgency/emergency reported. Plan: Continue carvedilol 3.125 mg p.o. b.i.d. Monitor blood pressures daily 5. History of Left Lung Resection for Malignancy (2022) Monitor regularly for baseline respiratory reserve and cancer surveillance. May complicate chest imaging and respiratory management. Plan: Chest x-ray: Left pneumon ectomy. No acute findings. CTA chest: No evidence of pulmonary embolism. Postoperative changes of left pneumonectomy with associated leftward shift of the heart and mediastinum. Small right pleural effusion and mild atelectasis of the right lower lobe, new versus chest CT dated 09/12/2023.Cardiomegaly and small pericardial effusion.Hepatic steatosis.Nonobstructing left nephrolithiasis. Oncology follow-up for cancer surveillance as outpatient. Mildly elevated procalcitonin levels 1.17, but however clinically he does not appear to be infected (procalcitonin can also be elevated in acute setting) 6. Hypothyroidism TSH levels ordered Continue home medications levothyroxine 7. Depression: Continue home medications citalopram 8. UTI: Urinalysis positive for UTI, ordered Rocephin 1 g IV daily Code Status: Full code DVT Prophylaxis: Heparin drip Analgesia/ Sedation: Morphine Line/tubes: P IV Nutrition: Heart healthy diet PT: Ordered Prognosis: Guarded Disposition: Continue tele monitoring Jason Randle MD Internal Medicine Resident, PGY-2 Date of Service: Mar 27, 2025 Billing Provider: PARISH GUY MD Common Visit Codes: [id number] INP/OBS CARE(HIGH) JASON RANDLE, RES Mar 27, 2025 12:33 PARISH GUY MD Mar 28, 2025 08:20
--- NOTE | 2025-03-27 18:53 | CARDIOLOGY REPORT ---
DATE OF SERVICE: 03/27/2025 DICTATING PHYSICIAN: HIEU Muñoz MD CARDIAC CATHETERIZATION GENDER: Female. AGE: 54 years. HEIGHT: 150 cm. WEIGHT: 64 kg. BODY SURFACE AREA: 1.57 m2. PRIMARY PHYSICIAN: Dr. Montero at [facility]. INDICATION: The patient is a 54-year-old postmenopausal female with a history of hypertension, borderline hyperlipidemia, prior history of smoking, lung cancer, diagnosed a few years ago requiring entire left pneumonectomy because it invaded the pulmonary artery, history of pulmonary embolism, and now has presented with chest pain and shortness of breath. The patient also has history of SVT, status post ablation in the past and found to have an elevated troponin in the 2900 range and EKG changes. After discussing risks, benefits, alternative options, the patient preferred to proceed with a definitive coronary angiography. Risks, benefits, alternative options discussed. Informed consent obtained. PROCEDURE TECHNIQUE: The patient underwent left heart catheterization via right radial approach, 6-Honduran right radial sheath. Post-procedure access site hemostasis secured with a right radial band. The patient had a right heart catheterization via right antecubital approach, 6-Honduran sheath. Post-procedure access site hemostasis secured with manual compression. The patient tolerated the procedure well. COMPLICATIONS: None. PROCEDURES DONE: * Ultrasound-guided right radial artery visualization and access. * Right heart catheterization. * Left heart catheterization. * LVG. * Coronary cineangiography. * Conscious sedation time 30 minutes. FINDINGS: HEMODYNAMICS: Aortic systolic 88, diastolic 56, mean 17 mmHg, LVEDP of 19 mmHg. There is no gradient across the aortic valve. Right atrial mean 8 mmHg. RV 30/10 mmHg. PA 32/12 mmHg. Pulmonary capillary wedge pressure of 9 mmHg. Aortic oxygen saturation 95%. Pulmonary artery oxygen saturation 63%. Aortic cardiac output with a minimum of 4.7 L per minute, cardiac index of 3 L per minute per meter square. LEFT VENTRICULOGRAM: Overall left ventricular systolic function is hyperdynamic with LV ejection fraction of 70-75%. CORONARY CINEANGIOGRAPHY: JL4 was too big for her short statured body frame. JL 3.5 from the right radial approach was able to create the left main coronary artery. A large caliber with minimal luminal irregularity. LAD is a medium caliber vessel arising at the bifurcation of the left main coronary artery coursing to the anterior interval groove. It ends before the apex and the distal one-third becomes a very small vessel. Diagonal 1 is 1.5 mm caliber with minimal luminal irregularities. Diagonal 2 is 2 mm caliber with minimal luminal irregularities. Circumflex artery is a medium-caliber vessel arising at the bifurcation of left main coronary artery, coursing through the left AV groove and minimal luminal irregularity. OM1 is 2.25 with minimal luminal irregularities. Distally, it gives rise to OM2 and OM3. OM2 is 2.25 mm with minimal luminal irregularities. OM3 is 2 mm caliber with minimal luminal irregularities. The right coronary artery a [id number] caliber vessel arising from the right aortic sinus and courses through the right atrioventricular groove and ends at the posterior crux by dividing into PDA and a very small posterolateral branch. Mid RCA has 20% narrowing. IMPRESSION: A 54-year-old female with: * Left ventricular ejection fraction of 70-75%. * LVEDP of 19 mmHg with no gradient across the aortic valve. * Pulmonary capillary wedge pressure of 9 mmHg. * PA pressure of 32/12 mmHg. * Left main normal. LAD with mild luminal irregularities. * Codominant circumflex with minimal luminal irregularities. * Codominant RCA with 20% narrowing. RECOMMENDATIONS: Recommend continued aggressive coronary risk factor modification only. Low-fat, low-cholesterol diet. Maintain ideal body weight, keeping LDL less 70 mg, regular exercise program. HIEU Muñoz MD TID: [id number] RECEIPT: [id number] /LUBA/MICHELLE cc: Juanita Montero MD, FAAFP
[2025-03-28 02:00] VITALS: BP 122/75; PULSE 54; RESP 18; TEMP 97.3; O2SAT 96
[2025-03-28 06:00] VITALS: BP 131/47; PULSE 60; RESP 19; TEMP 97.4; O2SAT 96
[2025-03-28 07:11] VITALS: RESP 16; O2SAT 96
[2025-03-28 07:41] LABS: MEAN PLATELET VOLUME 7.4 FL (7.4-10.4); RED CELL DISTRIBUTION WIDTH 16.6 % (11.5-14.5)
[2025-03-28 07:54] LABS: CREATININE 0.81 MG/DL (0.40-0.90); TOTAL CARBON DIOXIDE 29.9 MMOL/L (24-32); eCRCL 53 ML/MIN; eGFR 73 ML/MIN
--- NOTE | 2025-03-28 10:42 | PROGRESS NOTE- Residence ---
Progress Note - Resident Providers to CC Resident Creating Document: ANISH PICHARDO, RES ~ Antibiotic Timeout Antibiotic Ordered?: Yes Subjective The patient has been evaluated at the bedside. The patient is currently asymptomatic. Denies chest pain, shortness of breath, palpitations. Objective Vital Signs Date Time Temp Pulse Resp B/P (MAP) Pulse Ox O2 Delivery O2 Flow Rate FiO2 03/28/25 07:11 16 96 Room Air 0.0 03/28/25 06:30 55 03/28/25 06:00 97.4 131/47 (75) Physical exam: General: Well alert, well oriented, not confused, not agitated, not in acute distress, well cooperated during the physical. HEENT: Conjunctive are pink, sclerae clear, no icterus, pupil is equal in both sides, reactive to light, no ear discharge, no pharyngeal erythema or an edema. Neck: Supple, no JVD, no lymphadenopathy and thyromegaly. Chest: No air entry in the level of the left lung, no evidence of wheezing or crackles right side of the thorax. Cardiovascular: S1-S2 regular sinus rhythm and, regular rate, no gallops, no rubs, no murmurs Abdomen: No visible peristalsis, Bowel sounds present on auscultation, soft, nontender, no guarding, no rigidity Extremities: No obvious deformities, no pitting edema bilaterally, capillary refill intact, peripheral pulsations are intact on both sides, radial approach without signs of infection or inflammation, no hematoma evidenced. Central Nervous System: No focal neurological deficits, no motor or sensory weakness in all 4 extremities, could move all 4 extremities, 2+ deep tendon reflexes, negative Babinski. Musculoskeletal: No joint swelling, deformities, inflammations, and no scoliosis and back tenderness Skin: Warm and dry. Result Diagram: 03/28/25 0634 03/28/25 0634 Coagulation Studies Laboratory Tests Test 03/26/25 13:32 03/27/25 08:07 03/27/25 12:05 Activated Partial Thromboplast Time 31 SECONDS (22-32) Activated Clotting Time 199 SEC (101-148) H APTT (Heparin Protocol) 30 SECONDS (45-60) L Coagulation Comments Assessment Assessment 54 years old female patient came to the hospital with chief complaint of chest pain. Plan Plan Chest pain, elevated troponins, likely secondary to recently finished immunotherapy, pembrolizumab: A: The patient came to the hospital with chief complaint of chest pain. Troponin levels: [id number]. Coronary angiogram on 03/27/2025: Showing mid RCA with 20% narrowing. The patient completed her treatment with immunotherapy for her adenocarcinoma of the left lung. Echocardiogram: Normal LV size and wall thickness. Overall systolic function is normal. LVEF is 65-70%. Right ventricle is grossly normal in size and function. The left atrium size is normal. Plan: Aspirin 81 mg daily. Atorvastatin 80 mg daily, LDL goal less than 55. Carvedilol 3.125 mg b.i.d. Follow-up with primary care physician within two weeks. Anticoagulation (History of pulmonary embolisms) Hypertension History of Left Lung Resection for Malignancy (2022) Hypothyroidism: Follow-up TSH. Depression UTI Continue management as per primary team. Code status: Full code DVT prophylaxis: SCDs Line/tube: PIV Nutrition: Heart healthy diet. Prognosis: Guarded Disposition: Continue medical therapy, follow-up with primary care physician within two weeks. Anish Mullen Internal Medicine Resident [facility] Date of Service: Mar 28, 2025 Billing Provider: DARYA NUNEZ MD, FRANCO LUIS, RES Mar 28, 2025 10:42
[2025-03-28 11:00] VITALS: BP 101/55; PULSE 60; RESP 19; TEMP 97.6; O2SAT 96
[2025-03-28] MEDS ORDERED: LACT1CAP26 PO (11:48)
[2025-03-28] MEDS ORDERED: SULF1TAB49 PO (11:48)
[2025-03-28] MEDS ORDERED: ATOR20TA66 PO (11:48)
[2025-03-28] MEDS ORDERED: ASPI81TA53 PO (11:48)
--- NOTE | 2025-03-28 18:29 | DISCHARGE SUMMARY-Residence ---
Discharge Summary Providers to Resident Creating Document: JASON AYALA, RES ~ Discharge Summary Admission Diagnosis: Chest pain Hospital Course DATE OF ADMISSION: 03/26/2025 DATE OF DISCHARGE: 03/28/2025 Discharge Diagnosis\Comment: 1. NSTEMI (NonST Elevation Myocardial Infarction) HEART score = 5 (moderatehigh risk). RANULFO = 1 (low, limited by available data). Killip class I (no signs of HF). 2. Hyperlipidemia 3. Anticoagulation (History of pulmonary embolisms) 4. Hypertension 5. History of Left Lung Resection for Malignancy (2022) 6. Hypothyroidism 7. Depression 8. UTI Operations\Procedures: Cardiac catheterization Consultants: Cardiology Complications: None Condition on DC: Stable New Medications: Atorvastatin Calcium (Atorvastatin Calcium) 20 Mg Tablet 80 MG PO DAILY for 30 Days, #120 TAB Lactobacillus Rhamnosus (Culturelle) 10 Billion Cell Capsule 1 CAP PO DAILY for 30 Days, #30 CAP 0 Refills Sulfamethoxazole/Trimethoprim (Bactrim Ds Tablet) 800 Mg-160 Mg Tablet 1 EACH PO BID for 7 Days, #14 TAB Aspirin (Children's Aspirin) 81 Mg Tab.chew 81 MG PO DAILY@0830 for 30 Days, #30 TAB.CHEW Continued Medications: Carvedilol (Carvedilol) 3.125 Mg Tablet 1 TAB PO BID Citalopram Hydrobromide (Citalopram HBr) 20 Mg Tablet 1 TAB PO DAILY Levothyroxine Sodium (Levothyroxine Sodium) 75 Mcg Tablet 1 TAB PO DAILY Multivit-Minerals/Folic Acid (Centrum Adult 50 Plus Gummy) 80 Mcg Tab.chew 1 TAB PO DAILY Discharge Summary: HPI as per admitting physician: A 54-year-old female with a history of left lung resection for malignancy (2022), hypertension, prior pulmonary embolism on apixaban, and remote history of supraventricular tachycardia, presented to the ED with chest pain ongoing for the past two days. The pain began after an episode of exertion and was described as constant, tight, and severe, lasting for several hours at a time. It involved the entire chest, radiating to the neck and back, and was worse when lying flat. She attempted symptomatic relief with her home oxycodone, but the pain did not improve. She denied associated cough, rhinorrhea, or other upper-respiratory symptoms. She did endorse a subjective fever episode recently. She denied palpitations, syncope, hemoptysis, or leg swelling. No orthopnea or paroxysmal nocturnal dyspnea was reported. There is no history of diabetes mellitus, smoking history is unclear, and she reports of using apixaban for a a year for her prior pulmonary embolism. Her oncologic treatment history is limited to surgical resection with recent chemotherapy and radiation therapy over the last year. She also received immunotherapy until the last week. On arrival to the ED, her vital signs were stable. ECG showed normal sinus rhythm without acute ST-T changes, but troponins were elevated, consistent with nonST elevation myocardial infarction (NSTEMI). Patient has a family history of colon cancer (grandmother and great- grandmother), she had a colonoscopy 5 years ago, and is due for one. Hospital course: The patient was admitted to telemetry, loaded with aspirin 325 mg, and transitioned to aspirin 81 mg daily. High-intensity atorvastatin was initiated, and home beta-nasrin (carvedilol) was continued. A nitroglycerin regimen was ordered as needed for chest pain. Cardiology was consulted, and the patient was started on a heparin drip pending catheterization. On March 27, 2025, the patient underwent left heart catheterization, which demonstrated non-obstructive coronary artery disease with no need for percutaneous coronary intervention. Following the procedure, he remained free of chest pain, hemodynamically stable, and continued on medical therapy with aspirin, atorvastatin, and beta-nasrin. Outpatient cardiology follow-up was arranged for further optimization of guideline-directed therapy. Other active issues were also addressed during hospitalization. The patient has a history of hyperlipidemia, with a recent lipid panel showing triglycerides 167, cholesterol 213, and LDL 117, for which atorvastatin 80 mg daily was continued. His past history of pulmonary embolism was noted; he had completed a one-year course of apixaban and was no longer anticoagulated at home. During this admission, CTA chest ruled out new pulmonary embolism. He was anticoagulated with a heparin drip during the NSTEMI management and transitioned off once catheterization was complete. His blood pressure remained stable throughout the hospitalization, and chronic hypertension was managed with continuation of carvedilol. Past oncologic history was significant for left lung resection for malignancy in 2022. CTA chest confirmed post-surgical changes, cardiomegaly, a small pericardial effusion, small right pleural effusion, mild atelectasis, and hepatic steatosis, but no recurrence or acute findings. He will continue routine oncology surveillance as an outpatient.Additional chronic conditions included hypothyroidism, for which levothyroxine was continued, and depression, for which citalopram was maintained. The patient was also found to have a urinary tract infection on admission, with urinalysis positive for infection. He was treated with intravenous ceftriaxone (Rocephin) 1 g daily, with clinical improvement. In summary, the patient was admitted with NSTEMI, treated medically, and underwent cardiac catheterization, which revealed non-obstructive CAD. His symptoms resolved, renal function remained stable, and comorbidities including hypertension, hypothyroidism, hyperlipidemia, and depression were managed. He completed treatment for UTI during hospitalization. The patient was discharged in stable condition with outpatient cardiology and oncology follow-up. Imaging CTA chest: 1. No evidence of pulmonary embolism. 2. Postoperative changes of left pneumonectomy with associated leftward shift of the heart and mediastinum. 3. Small right pleural effusion and mild atelectasis of the right lower lobe, new versus chest CT dated 09/12/2023. 4. Cardiomegaly and small pericardial effusion. 5. Hepatic steatosis. 6. Nonobstructing left nephrolithiasis. The kidneys are not fully imaged here. Echocardiogram: Normal LV size and wall thickness. Overall systolic function is normal. LVEF is 65-70%. Right ventricle is grossly normal in size and function. The left atrium size is normal. Trileaflet AV appears mildly sclerotic without stenosis. No insufficiency. Mild mitral annular calcification without stenosis. Trace regurgitation. The tricuspid valve is normal in structure with trace regurgitation. Mild circumferential pericardial effusion without hemodynamic compromise. No echo indications of pericardial tamponade. Angiogram: Coronary angiogram on 03/27/2025: Showing mid RCA with 20% narrowing. Physical examination today: Awake , alert, and oriented x4, resting comfortably in the bed, in no acute distress HEENT: Atraumatic, normocephalic, EOMI, anicteric sclera ; pink conjunctiva Neck: Trachea midline. Supple, full range of motion, no JVD Cardiac: Regular rhythm, regular rate with no murmurs all over the precordium. Respiratory: Diminished breath sounds left-side, no tachypnea, no wheezing ,rub or rales, Chest wall is symmetric and without deformity. Gastrointestinal: Abdomen symmetric, non-distended, soft, non-tender, normal bowel sounds x4 quadrant, normoactive, no hepatosplenomegaly Musculoskeletal: No pedal edema, no cyanosis Neurological: Speech is clear, alert, and oriented x 4. No motor or sensory deficit, deep tendon reflexes normal, cerebellar intact. Cranial nerves II-XII intact. Skin: hyper and hypopigmented patches skin all over the upper extremities, legs and face Laboratory Tests Test 03/26/25 20:14 03/27/25 05:00 03/27/25 08:07 03/27/25 08:37 APTT (Heparin Protocol) 34 SECONDS 36 SECONDS Coagulation Comments White Blood Count 7.1 X10'3 Red Blood Count 4.38 X10'6 Hemoglobin 11.9 g/dl Hematocrit 35.9 % Mean Corpuscular Volume 81.9 FL Mean Corpuscular Hemoglobin 27.1 PG Mean Corpuscular Hemoglobin Concent 33.1 g/dL Red Cell Distribution Width 17.0 % Platelet Count 365 X10'3 Mean Platelet Volume 7.1 FL Neutrophils (%) (Auto) 78.7 % Lymphocytes (%) (Auto) 9.9 % Monocytes (%) (Auto) 8.9 % Eosinophils (%) (Auto) 2.2 % Basophils (%) (Auto) 0.3 % Neutrophils # (Auto) 5.5 X10'3 Lymphocytes # (Auto) 0.7 X10'3 Monocytes # (Auto) 0.6 X10'3 Eosinophils # (Auto) 0.2 X10'3 Basophils # (Auto) 0.0 X10'3 CBC Comment Sodium Level 140 MMOL/L Potassium Level 3.8 MMOL/L Chloride Level 104 MMOL/L Carbon Dioxide Level 32.5 MMOL/L Anion Gap 4 Blood Urea Nitrogen 10 MG/DL Creatinine 0.80 MG/DL Estimated GFR/1.73 m2 74 ML/MIN BUN/Creatinine Ratio 12.5 Glucose Level 136 MG/DL Calcium Level 8.4 MG/DL Magnesium Level 2.0 MG/DL Total Bilirubin 0.6 MG/DL Aspartate Amino Transf (AST/SGOT) 15 U/L Alanine Aminotransferase (ALT/SGPT) 24 U/L Alkaline Phosphatase 101 IU/L Total Protein 7.2 G/DL Albumin 2.6 G/DL Globulin 4.6 G/DL Albumin/Globulin Ratio 0.6 Triglycerides Level 167 MG/DL Cholesterol Level 213 MG/DL LDL Cholesterol 117 MG/DL HDL Cholesterol 47 MG/DL Cholesterol/HDL Ratio 4.5 Chemistry Comments Activated Clotting Time 199 SEC Bedside Blood Gas Source Blnk Bedside Arterial Blood O2 Sat 95 % Bedside Hemoglobin (Blood Gas) 11.2 g/dl Bedside Hematocrit (Blood Gas) 33 %PCV Test 03/27/25 08:38 03/27/25 12:05 03/28/25 06:34 Bedside Blood Gas Source Blnk Bedside Mixed Venous O2 Saturation 63 % Bedside Hemoglobin (Blood Gas) 11.2 g/dl Bedside Hematocrit (Blood Gas) 33 %PCV APTT (Heparin Protocol) 30 SECONDS Coagulation Comments White Blood Count 5.2 X10'3 Red Blood Count 4.26 X10'6 Hemoglobin 11.6 g/dl Hematocrit 35.3 % Mean Corpuscular Volume 82.9 FL Mean Corpuscular Hemoglobin 27.2 PG Mean Corpuscular Hemoglobin Concent 32.8 g/dL Red Cell Distribution Width 16.6 % Platelet Count 406 X10'3 Mean Platelet Volume 7.4 FL Neutrophils (%) (Auto) 69.6 % Lymphocytes (%) (Auto) 15.5 % Monocytes (%) (Auto) 9.1 % Eosinophils (%) (Auto) 5.1 % Basophils (%) (Auto) 0.7 % Neutrophils # (Auto) 3.6 X10'3 Lymphocytes # (Auto) 0.8 X10'3 Monocytes # (Auto) 0.5 X10'3 Eosinophils # (Auto) 0.3 X10'3 Basophils # (Auto) 0.0 X10'3 CBC Comment Sodium Level 143 MMOL/L Potassium Level 4.3 MMOL/L Chloride Level 108 MMOL/L Carbon Dioxide Level 29.9 MMOL/L Anion Gap 5 Blood Urea Nitrogen 12 MG/DL Creatinine 0.81 MG/DL Estimated GFR/1.73 m2 73 ML/MIN BUN/Creatinine Ratio 14.8 Glucose Level 114 MG/DL Calcium Level 8.7 MG/DL Magnesium Level 2.2 MG/DL Total Bilirubin 0.3 MG/DL Aspartate Amino Transf (AST/SGOT) 15 U/L Alanine Aminotransferase (ALT/SGPT) 34 U/L Alkaline Phosphatase 106 IU/L Total Creatine Kinase 74 U/L Total Protein 7.3 G/DL Albumin 2.5 G/DL Globulin 4.8 G/DL Albumin/Globulin Ratio 0.5 Chemistry Comments Advise on discharge: You had a Coronary angiogram on 03/27/2025: Showing mid RCA with 20% narrowing. Your echocardiogram showed Echocardiogram: Normal LV size and wall thickness. Overall systolic function is normal. LVEF is 65-70%. Right ventricle is grossly normal in size and function. The left atrium size is normal. Continue the following medications Aspirin 81 mg daily. Atorvastatin 80 mg daily, LDL goal less than 55. Carvedilol 3.125 mg b.i.d. Follow-up with primary care physician within two weeks. *Problems/Diagnosis: (1) NSTEMI (non-ST elevated myocardial infarction) Status: Acute Total Time Spent on D/C: > 30 Minutes Date of Service: Mar 28, 2025 Billing Provider: AJ ARGUETA MD Common Visit Codes: 77556-AEP/OBS DISCH DAY >30min JASON AYALA, RES Mar 28, 2025 18:29 AJ ARGUETA MD Mar 31, 2025 14:01
== END 2025-03-28 14:33 | disposition home or self-care (01) | DRG 190 ==
LOC: ER 10:29 → ED HOLD 13:37 → PCU 3S 19:47
PROVIDERS: ADMIT Internal Medicine; ATTEND Internal Medicine
PROC: B32T1ZZ Computerized Tomography (CT Scan) of Left Pulmonary Artery using Low Osmolar Contrast (ICD-10-PCS; 2025-03-26)
PROC: B3201ZZ Computerized Tomography (CT Scan) of Thoracic Aorta using Low Osmolar Contrast (ICD-10-PCS; 2025-03-26)
PROC: B32S1ZZ Computerized Tomography (CT Scan) of Right Pulmonary Artery using Low Osmolar Contrast (ICD-10-PCS; 2025-03-26)
PROC: 4A023N8 Measurement of Cardiac Sampling and Pressure, Bilateral, Percutaneous Approach (ICD-10-PCS; principal; 2025-03-27)
PROC: B2111ZZ Fluoroscopy of Multiple Coronary Arteries using Low Osmolar Contrast (ICD-10-PCS; 2025-03-27)
PROC: B2151ZZ Fluoroscopy of Left Heart using Low Osmolar Contrast (ICD-10-PCS; 2025-03-27)
DX: I21.4 Non-ST elevation (NSTEMI) myocardial infarction (principal); E03.9 Hypothyroidism, unspecified; E78.00 Pure hypercholesterolemia, unspecified; I10 Essential (primary) hypertension; F32.A Depression, unspecified; I25.10 Atherosclerotic heart disease of native coronary artery without angina pectoris; N39.0 Urinary tract infection, site not specified; Z85.118 Personal history of other malignant neoplasm of bronchus and lung; Z92.21 Personal history of antineoplastic chemotherapy; Z92.3 Personal history of irradiation; Z79.01 Long term (current) use of anticoagulants; Z79.899 Other long term (current) drug therapy
CPT/HCPCS: 36415; 71045; 71275; 80048; 80053; 80061; 81001; 82550; 82803; 83036; 83605; 83735; 83880; 84145; 84484; 85014; 85025; 85347; 85730; 87040; 87077; 87081; 87088; 87186; 93005; 93306; 93460; 96365; 96375; 99152; 99153; 99285; A6258; A6449; C1725; C1751; C1894; G0378; J0696; J1644; J2003; J2250; J3010; J3490; J7030; Q9967

== ENCOUNTER 2025-04-09 08:37 | Emergency (ER) | payer MEDICAID ==
[~2025-04-09] VITALS: Ht 149.9 cm; Wt 78.0 kg
[~2025-04-09 08:37] MED LIST changes: -APIX5TAB3 PO; +ASPI81TA53 PO; -ATOR10TA70 PO; +ATOR20TA66 PO; +CARV3.1244 PO; -CARV6.253 PO; +CITA20TA17 PO; -ENOX100S3 SQ; -FOLI1TAB27 PO; +LACT1CAP26 PO; +LEVO75TA7 PO; -SYN0.088T PO
[2025-04-09 08:40] VITALS: TEMP 99.9
--- NOTE | 2025-04-09 08:50 | ELECTROCARDIOGRAPH REPORT ---
[facility] Test Date: 2025-04-09 Test Time: 08:40:29 Pat Name: ENZO HERNANDEZ Department: EMERGENCY ROOM Room: Gender: F [employer] Operator: CHRIS : 1970 Requested By: MIHIR MCGOWAN Order Number: [id number] Reading MD: Measurements Intervals [place] Rate: 90 P: 71 DE: 154 QRS: 14 QRSD: 77 T: 123 QT: 343 QTc: 420 Interpretive Statements Sinus rhythm Anteroseptal infarct, age indeterminate Lateral leads are also involved Please click the below link to view image of tracing.
--- NOTE | 2025-04-09 09:28 | RADIOLOGY REPORT ---
EXAM: DI CHEST,SINGLE VIEW Indication: Pain; POSS PNEUMONIA Technique: Single frontal view of the chest was obtained Comparison: DI CHEST,SINGLE VIEW on DOS: 03/26/25, DI CHEST,SINGLE VIEW on DOS: 10/27/23, DI CHEST,SINGLE VIEW on DOS: 09/12/23, DI CHEST,TWO VIEWS on DOS: 06/27/23, DI CHEST,TWO VIEWS on DOS: 05/31/23 FINDINGS: Lines and Tubes: None Lungs: Complete opacification of the left hemithorax with volume loss. Findings are unchanged compared to prior exam. No pneumothorax. Cardiomediastinal contours: Unremarkable Bones: No acute osseous abnormality. IMPRESSION: Complete opacification of the left hemithorax with volume loss. Findings are unchanged compared to prior exam.
--- NOTE | 2025-04-09 09:32 | Physician Documentation ---
History of Present Illness ~ Chief Complaint: Chest Wall Pain Stated Complaint: CP Time Seen by MD: 08:49 Primary Medical Doctor: [facility] HPI This 54-year-old female with a history of a left pneumonectomy, lung cancer, and minimal right pleural effusions presents with increased shortness of breath and cough. States she has had a sub clinical subjective fever of 99 F. she states that her pain is worse with inspiration. Patient recently finished cancer treatment via immunotherapy and her most recent PET scan was negative States she has smoked for several decades and stopped 2-3 years ago Earlier this month patient presented to the ED which ultimately resulted in grossly elevated troponins and hospital admission. She had a heart catheterization done at that time Day of Onset: Apr 09, 2025 Medication Reconciliation Allergies: Coded Allergies: Penicillins (Unverified Allergy, Mild, rash, 04/09/25) Scheduled Aspirin (Children's Aspirin), 81 MG PO DAILY@0830 Carvedilol (Carvedilol), 1 TAB PO BID, (Reported) Cefpodoxime Proxetil (Cefpodoxime Proxetil), 1 TAB PO Q12H Citalopram Hydrobromide (Citalopram HBr), 1 TAB PO DAILY, (Reported) Lactobacillus Rhamnosus (Culturelle), 1 CAP PO DAILY Levothyroxine Sodium (Levothyroxine Sodium), 1 TAB PO DAILY, (Reported) Multivit-Minerals/Folic Acid (Centrum Adult 50 Plus Gummy), 1 TAB PO DAILY, (Reported) Prednisone (Prednisone), 1 TAB PO BID Discontinued Medications Atorvastatin Calcium (Atorvastatin Calcium), 80 MG PO DAILY Discontinued Reason: patient no longer taking Sulfamethoxazole/Trimethoprim (Bactrim Ds Tablet), 1 EACH PO BID Discontinued Reason: Auto Discontinued Past Medical History Past Medical History: High Cholesterol, Hypertension, Hypothyroidism, Lung C ancer, Depression Past Surgical History: cancer surgery Patient History: FH: colon cancer Maternal Grandmother Maternal Grandfather FH: pancreatic cancer Paternal Grandmother Alcohol Use: Occasionally Drug Use: none Lives In: Home Review of Systems All Other Systems at this time: Reviewed and Negative ROS As stated above in the HPI, otherwise all systems are reviewed and negative. Physical Exam Vital Signs: Temperature: 99.9, Source: Oral, Heart Rate: 91, Respiratory Rate: 28, BP: 102/72, Pulse Oximetry: 100, Weight: 78.000 Oxygen Flow Rate: 0 Physical Exam Respiratory: Lung clear, no respiratory distress. Diminished right side Chest: No accessory muscle use. Cardiovascular: Regular rate and rhythm, no murmurs. Extremities: Normal range of motion, no deformity. Neurologic: Oriented x4. Psychiatric: Normal mood and affect. Skin: Normal color, warm and dry. No edema, no ecchymosis. Progress Results/Orders Results/Orders Completed Orders - JAMAL TAPIA DRY PAN FEEDER Cefpodoxime Proxetil Tablet (Vantin Tabl (04/09/25 10:40) Vital Signs 04/09/25 04/09/25 04/09/25 04/09/25 08:40 09:46 09:49 09:52 Temp 99.9 Pulse 91 94 Resp 28 16 16 B/P (MAP) 102/72 112/74 (87) Pulse Ox 100 100 100 O2 Delivery Nasal Cannula* O2 Flow Rate 0 2 2.0 FiO2 28 Laboratory Tests Test 04/09/25 09:19 White Blood Count 14.4 H Red Blood Count 4.56 Hemoglobin 12.1 Hematocrit 37.2 Mean Corpuscular Volume 81.5 Mean Corpuscular Hemoglobin 26.5 L Mean Corpuscular Hemoglobin Concent 32.5 L Red Cell Distribution Width 17.1 H Platelet Count 551 H Mean Platelet Volume 6.7 L Neutrophils (%) (Auto) 88.0 H Lymphocytes (%) (Auto) 5.0 L Monocytes (%) (Auto) 5.8 Eosinophils (%) (Auto) 0.8 Basophils (%) (Auto) 0.4 Neutrophils # (Auto) 12.7 H Lymphocytes # (Auto) 0.7 L Monocytes # (Auto) 0.8 Eosinophils # (Auto) 0.1 Basophils # (Auto) 0.1 CBC Comment Sodium Level 137 Potassium Level 5.0 Chloride Level 101 Carbon Dioxide Level 30.3 Anion Gap 6 L Blood Urea Nitrogen 13 Creatinine 0.78 Estimated GFR/1.73 m2 76 BUN/Creatinine Ratio 16.7 Glucose Level 139 H Lactic Acid Level 1.8 Calcium Level 8.9 Troponin I High Sensitivity 6 Pro-B-Type Natriuretic Peptide 98 Albumin 2.9 L Chemistry Comments Microbiology Date/Time Source Procedure Growth Status 04/09/25 09:53 Blood Arm Right Blood Culture - Preliminary NEGATIVE (LESS THAN 24 HOURS) Resulted Medical Decision Making Findings The patient does have a complex medical history however her laboratory values show she may be developing a bacterial infection. Her x-ray did not have any notable opacities or patchy infiltrate. Are negative. I discussed with the patient that I currently am suspecting a bacterial pneumonia based on her cough history reported symptoms and signs of infection in her laboratory values. Hospital admission however she declined Differential Dx:Considerations: Include: angina, aortic dissection, chest wall pain, cholelithiasis, CHF, costochondritis, esophageal reflux/spasm, gastritis, herpes zoster, myocardial infarction, pericarditis, pleuritis, pancreatitis, pneumonia, pneumothorax, pulmonary embolus, other Departure Disposition: HOME / SELF CARE / HOMELESS Impression: Primary Impression: COPD (chronic obstructive pulmonary disease) Additional Impression: Pneumonia Condition: Stable Discharge Instructions: Community-Acquired Pneumonia, Adult, [id number] Referrals: NO PRIMARY CARE PROVIDER (PCP) Prescriptions Prednisone (Prednisone) 10 Mg Tablet 1 TAB PO BID for 5 Days, #10 TAB Prov: JAMAL TAPIA NP 04/09/25 Cefpodoxime Proxetil (Cefpodoxime Proxetil) 100 Mg Tablet 1 TAB PO Q12H for 7 Days, #14 TAB 0 Refills Prov: JAMAL TAPIA NP 04/09/25 Education Educated: Patient Educated regarding: diagnosis Signature Scribe Signature: y Attestation: Scribed for Jamal Tapia Outbound Call Center Representative by Jamal Elizabeth NP . 04/09/25 17:02 JAMAL TAPIA NP Apr 09, 2025 09:32
[2025-04-09 09:43] LABS: MEAN PLATELET VOLUME 6.7 FL (7.4-10.4); RED CELL DISTRIBUTION WIDTH 17.1 % (11.5-14.5)
[2025-04-09 09:49] VITALS: BP 112/74; PULSE 94; O2SAT 100
[2025-04-09 09:52] VITALS: RESP 16
[2025-04-09 10:05] LABS: CREATININE 0.78 MG/DL (0.40-0.90); PRO BRAIN NATRIURETIC PEPTIDE 98 PG/ML (0-125); TOTAL CARBON DIOXIDE 30.3 MMOL/L (24-32); eCRCL 55 ML/MIN; eGFR 76 ML/MIN
[2025-04-09] MEDS ORDERED: CEFP100T7 PO (10:46)
[2025-04-09] MEDS ORDERED: PRED10TA23 PO (10:47)
[2025-04-09] MEDS: cefpodoxime proxetil 100mg tablet PO ONE (11:07)
== END 2025-04-09 11:09 | disposition home or self-care (01) ==
LOC: ER 08:37
DX: J44.9 Chronic obstructive pulmonary disease, unspecified (principal); J18.9 Pneumonia, unspecified organism; E03.9 Hypothyroidism, unspecified; E78.00 Pure hypercholesterolemia, unspecified; I10 Essential (primary) hypertension; F32.A Depression, unspecified; Z85.118 Personal history of other malignant neoplasm of bronchus and lung; Z88.0 Allergy status to penicillin; Z79.82 Long term (current) use of aspirin; Z79.899 Other long term (current) drug therapy; Z72.89 Other problems related to lifestyle
CPT/HCPCS: 36415; 71045; 80048; 83605; 83880; 84484; 85025; 87040; 93005; 99285